=== PATIENT | female | born 1950 | race Caucasian/White ===

== ENCOUNTER 2020-08-21 08:22 | Outpatient (REF) | payer MEDICARE, SELFPAY | END 2020-08-21 08:23 | disposition home or self-care (01) | LOC: HO.WFDLDS 08:22 | PROVIDERS: Visit Provider Internal Medicine | DX: Z20.828 Contact with and (suspected) exposure to other viral communicable diseases (principal) | CPT/HCPCS: U0003 ==

== ENCOUNTER 2020-09-16 12:30 | Day surgery (SDC) | payer MEDICARE, SELFPAY ==
[2020-09-10 14:37] VITALS: BMI 52.4
--- NOTE | 2020-09-15 09:59 | HO.ANESPROP2 ---
Documented by User: Nancy Collazo 09/15/20 10:00 HPI - Anesthesia Eval Consult details Narrative: 70yo F for Colonoscopy PMFSH Past Medical History Medical History Depression GERD (gastroesophageal reflux disease) Hypercholesterolemia IBS (irritable bowel syndrome) Vitamin D deficiency Family History Family History Father Smoker Emphysema, unspecified Mother Colon cancer Maternal Grandfather No problems noted. Maternal Grandmother No problems noted. Paternal Grandfather No problems noted. Paternal Grandmother No problems noted. Sister No problems noted. Sister No problems noted. Sister No problems noted. Surgical History Surgical History H/O colonoscopy History of esophagogastroduodenoscopy (EGD) History of hysterectomy with bilateral oophorectomy Hx laparoscopic cholecystectomy Social History Social History Smoking Status: Former smoker Meds Allergies Allergy/AdvReac Type Severity Reaction Status Date / Time Penicillins [PENICILLINS] Allergy Intermediate HIVES Verified 08/03/20 14:03 Sulfa (Sulfonamide Allergy Intermediate FLUSHING/RASH, Verified 08/03/20 14:03 Antibiotics) hives [SULFA (SULFONAMIDE ANTIBIOTICS)] Home Medications Medication Instructions Recorded Confirmed Type cholecalciferol (vitamin D3) 50 50 mcg PO BEDTIME 08/06/20 09/10/20 History mcg (2,000 unit) capsule colesevelam 3.75 gram oral powder 3.75 g PO BID 08/06/20 09/10/20 History packet flu vacc [id number](65yr up)-PF 240 ml IM 08/06/20 08/06/20 History mcg/0.7 mL intramuscular syringe fluoxetine 10 mg capsule 10 mg PO DAILY 08/06/20 09/10/20 History meloxicam 15 mg tablet 15 mg PO DAILY 08/06/20 09/10/20 History triamcinolone acetonide 0.1 % 1 applic TOPICAL BID 08/06/20 09/10/20 History topical cream Exam Exam Date and Time: September 15, 2020 0959 Height,Weight and Vital Signs: Height 5 ft 5 in Weight 143 kg Assessment and Plan Assessment Anesthesia Assessment: Chart Reviewed Documented by User: Cindy Terrazas 09/16/20 11:48 PMF Past Medical History Medical History Depression GERD (gastroesophageal reflux disease) Hypercholesterolemia IBS (irritable bowel syndrome) Vitamin D deficiency Family History Family History Father Smoker Emphysema, unspecified Mother Colon cancer Maternal Grandfather No problems noted. Maternal Grandmother No problems noted. Paternal Grandfather No problems noted. Paternal Grandmother No problems noted. Sister No problems noted. Sister No problems noted. Sister No problems noted. Surgical History Surgical History H/O colonoscopy History of esophagogastroduodenoscopy (EGD) History of hysterectomy with bilateral oophorectomy Hx laparoscopic cholecystectomy Social History Social History Smoking Status: Former smoker Meds Allergies Allergy/AdvReac Type Severity Reaction Status Date / Time Penicillins [PENICILLINS] Allergy Intermediate HIVES Verified 08/03/20 14:03 Sulfa (Sulfonamide Allergy Intermediate FLUSHING/RASH, Verified 08/03/20 14:03 Antibiotics) hives [SULFA (SULFONAMIDE ANTIBIOTICS)] Home Medications Medication Instructions Recorded Confirmed Type cholecalciferol (vitamin D3) 50 50 mcg PO BEDTIME 08/06/20 09/10/20 History mcg (2,000 unit) capsule colesevelam 3.75 gram oral powder 3.75 g PO BID 08/06/20 09/10/20 History packet flu vacc [id number](65yr up)-PF 240 ml IM 08/06/20 08/06/20 History mcg/0.7 mL intramuscular syringe fluoxetine 10 mg capsule 10 mg PO DAILY 08/06/20 09/10/20 History meloxicam 15 mg tablet 15 mg PO DAILY 08/06/20 09/10/20 History triamcinolone acetonide 0.1 % 1 applic TOPICAL BID 08/06/20 09/10/20 History topical cream Exam Airway Mallampati Class: II TM Dist: >3cm Neck ROM: Full
[2020-09-15 13:56] VITALS: BMI 52.4
[2020-09-16 11:43] VITALS: BMI 23.3
[2020-09-16 12:02] VITALS: BP 186/91; PULSE 82; RESP 20; TEMP 36.4; O2SAT 99
--- NOTE | 2020-09-16 12:13 | MHC.SHP ---
Pre-Procedural Eval Section B Chief Complaint: Screening Relevant Social History: None Present Medications: see Short Stay Collaborative assessment Medical History: Significant History (Depression GERD (gastroesophageal reflux disease) Hypercholesterolemia IBS (irritable bowel syndrome) Vitamin D deficiency) History of Previous Operations: Relevant previous surgery/procedure and date(s) (hysterectomy, cholecystectomy) Allergies: Allergies Allergy/AdvReac Type Severity Reaction Status Date / Time Penicillins [PENICILLINS] Allergy Intermediate HIVES Verified 08/03/20 14:03 Sulfa (Sulfonamide Allergy Intermediate FLUSHING/RASH, Verified 08/03/20 14:03 Antibiotics) hives [SULFA (SULFONAMIDE ANTIBIOTICS)] Review of Systems Sugical H&P ROS: Negative: Constitution, Cardiovascular, Respiratory, Neurological, Psychiatric, Hem-Onc, Allergic/Immunologic, Gastrointestinal, Genitourinary, Musculoskeletal, Integumentary, Endocrine and Eyes/Ears/Nose/Throat Exam Surgical H&P Exam: Normal: HEENT, Normal: Heart, Normal: Lungs, Normal: Extremities, Normal: Abdomen, Normal: Skin and Normal: Neurological Plan Diagnosis/Plan: Unchanged Patient has been examined and remains a candidate for the planned procedure
--- NOTE | 2020-09-16 12:45 | P.BOP_ITS ---
Brief Operative Note Date of Service: 09/16/20 Pre-op diagnosis: colon screen Post-op diagnosis: same Procedure: Operative Information Procedure Description: Colonoscopy COLONOSCOPY Instrument: Olympus variable stiffness pediatric scope 190L Colonoscopy Monitoring: Vital signs and clinical assessment, continuous EKG monitoring, Pulse oximetry, Carbon Dioxide monitoring and blood pressure monitoring were done throughout the procedure. Colon withdrawal time was 6 minutes. Procedure: The patient was placed in the left lateral decubitis position and pre-procedure medications were administered. After a digital rectal examination of the ano-rectum, the video colonoscope was inserted into the rectum and advanced through the colon to the cecum/TI. The colonoscope was slowly withdrawn in a retrograde panoramic fashion and the colon mucosa was carefully examined including a retroflexed view of the rectum. Findings and interventions are described below. Procedure Difficulty: moderate due to tight colon and severe diverticulosis Findings: Terminal Ileum-normal Cecum:normal Ascending Colon: normal Transverse Colon -normal Descending Colon:normal Sigmoid Colon: numerous diverticula, varying sizes with mucosal hypertrophy Rectum: Retroflexion with small internal hemorrhoids, grade I Anorectum - normal Colon preparation: [place] Bowel Preparation Scale Right colon; 2 Transverse colon: 3 Left colon; 2 (0 = Unprepared colon segment with mucosa not seen due to solid stool that cannot be cleared. 1 = Portion of mucosa of the colon segment seen, but other areas of the colon segment not well seen due to staining, residual stool and/or opaque liquid. 2 = Minor amount of residual staining, small fragments of stool and/or opaque liquid, but mucosa of colon segment seen well. 3 = Entire mucosa of colon segment seen well with no residual staining, small fragments of stool or opaque liquid) Impression and Post Procedure Diagnosis: diverticulosis internal hemorrhoids Plan: High fiber diet leaflet Avoid straining at stool, epsom salts and sitz bath, anusol supps or cream Repeat Colonoscopy in 5 years or earlier if clinically indicated Above findings were reviewed with the patient and relevant handouts were provided if indicated. Surgeon: Dulce Maria Pappas MD Anesthesia: MAC Estimated blood loss (mL): 0 Pathology: none sent Condition: stable Disposition: PACU
[2020-09-16 12:54] VITALS: BP 127/74; PULSE 85; RESP 18; TEMP 36.3; O2SAT 98
[2020-09-16 12:59] VITALS: BP 142/86; PULSE 74; RESP 22; O2SAT 96
[2020-09-16 13:13] VITALS: BP 148/82; PULSE 68; RESP 20; TEMP 36.3; O2SAT 97
--- NOTE | 2020-09-16 13:47 | HO.POSTANES ---
Post Anesthesia Evaluation Post Anesthesia Evaluation Vital Signs: Vital Signs Temp Pulse Resp BP Pulse Ox 09/16/20 13:13 97.4 F 68 20 148/82 H 97 09/16/20 12:59 74 22 H 142/86 H 96 09/16/20 12:54 97.4 F 85 18 127/74 98 09/16/20 12:02 97.6 F 82 20 186/91 H 99 Anesthesia: Monitored Mental Status: Awake Pain Control: Satisfactory Nausea/Vomiting: None Hydration: Adequate Anesthesia-Related Issues: No Anes. Related Issues
== END 2020-09-16 23:59 | disposition home or self-care (01) ==
LOC: HO.SSS 09-17 14:31
PROVIDERS: PCP Internal Medicine; Visit Provider Internal Medicine Gastroenterology
PROC: 0DJD8ZZ Inspection of Lower Intestinal Tract, Via Natural or Artificial Opening Endoscopic (ICD-10-PCS; CPT 45378; principal; 2020-09-16 12:30)
DX: Z12.11 Encounter for screening for malignant neoplasm of colon (principal); K57.30 Diverticulosis of large intestine without perforation or abscess without bleeding; K64.0 First degree hemorrhoids; K58.9 Irritable bowel syndrome, unspecified; K63.89 Other specified diseases of intestine; K21.9 Gastro-esophageal reflux disease without esophagitis; F32.9 Major depressive disorder, single episode, unspecified; E78.00 Pure hypercholesterolemia, unspecified; E55.9 Vitamin D deficiency, unspecified; Z90.49 Acquired absence of other specified parts of digestive tract; Z88.0 Allergy status to penicillin; Z88.2 Allergy status to sulfonamides; Z87.891 Personal history of nicotine dependence; Z79.899 Other long term (current) drug therapy
CPT/HCPCS: G0121

== ENCOUNTER → 2020-10-20 14:26 | Outpatient (BNVA) | payer MEDICARE, SELFPAY | PROVIDERS: PCP Internal Medicine; Visit Provider Internal Medicine Gastroenterology | DX: Z98.890 Other specified postprocedural states (principal); K57.90 Diverticulosis of intestine, part unspecified, without perforation or abscess without bleeding; K64.8 Other hemorrhoids | CPT/HCPCS: Q3014 ==

== ENCOUNTER 2021-03-04 09:51 | Outpatient (REF) | payer MEDICARE, SELFPAY ==
[2021-03-04 11:14] LABS: Alanine Aminotransferase 26 U/L (0-31); Albumin Level 4.6 g/dL (3.5-5.0); Alkaline Phosphatase 58 U/L (39-117); Anion Gap 11 (12-20); Aspartate Amino Transferase 28 U/L (5-31); Bilirubin Total 1.6 mg/dL (0.0-1.0); Blood Urea Nitrogen 17 mg/dL (9-16); Calcium 9.5 mg/dL (8.4-10.2); Carbon Dioxide 28 mmol/L (22-29); Chloride 106 mmol/L (96-108); Cholesterol 174 mg/dL; Estimated Glomerular Filt Rate > 60; Glucose Fasting 99 mg/dL (60-99); HDL Cholesterol 67 mg/dL; LDL Cholesterol Calculated 93 mg/dl; Potassium 4.3 mmol/L (3.3-5.1); Sodium 141 mmol/L (135-145); Total Protein 6.4 g/dL (6.5-8.0); Triglycerides 74 mg/dL
[2021-03-04 11:37] LABS: Vitamin D 25-OH Total 33.5 ng/mL (>30)
== END 2021-03-04 09:52 | disposition home or self-care (01) ==
LOC: HO.LAB 09:51
PROVIDERS: PCP Internal Medicine; Visit Provider Internal Medicine
DX: Z00.00 Encounter for general adult medical examination without abnormal findings (principal); E55.9 Vitamin D deficiency, unspecified; E78.00 Pure hypercholesterolemia, unspecified
CPT/HCPCS: 36415; 80053; 80061; 82306

== ENCOUNTER 2021-08-12 09:19 | Outpatient (REF) | payer MEDICARE, SELFPAY ==
[2021-08-12 11:16] LABS: Appearance Urine HAZY; Color Urine YELLOW; Glucose Urine UA NEG (NEG); Leukocyte Esterase Urine 3+ (NEG); Nitrite Urine NEG (NEG); PH 5.5 (5.0-8.0); Specific Gravity - Urine >= 1.030 (1.005-1.025); Urine Blood 1+ (NEG); Urine Ketones NEG (NEG); Urine Protein NEG (NEG-TRACE)
[2021-08-12 11:22] LABS: Hematocrit 44.2 % (37.0-47.0); Hemoglobin 14.3 g/dl (12.0-16.0); Mean Corpuscular HGB Conc 32.4 g/dl (31.0-35.0); Mean Corpuscular Hemoglobin 30.8 pg (27.0-33.0); Mean Corpuscular Volume 95.3 fL (80.0-98.0); Mean Platelet Volume 9.1 fL (9.4-12.3); Platelet Count 272 X10*3/uL (160-400); Red Blood Count 4.64 X10*6/uL (4.20-5.50); Red Cell Distribution Width 12.9 % (11.0-16.0); White Blood Count 5.4 X10*3/uL (4.8-10.8)
[2021-08-12 11:36] LABS: Bacteria Urine TRACE /LPF; RBC Urine 0 /HPF (0); Squamous Epithelial Cell Urine TRACE /LPF
[2021-08-12 11:50] LABS: Alanine Aminotransferase 15 U/L (0-31); Albumin Level 4.4 g/dL (3.5-5.0); Alkaline Phosphatase 55 U/L (39-117); Anion Gap 8 (12-20); Aspartate Amino Transferase 18 U/L (5-31); Blood Urea Nitrogen 13 mg/dL (9-16); Calcium 9.2 mg/dL (8.4-10.2); Carbon Dioxide 28 mmol/L (22-29); Chloride 105 mmol/L (96-108); Cholesterol 180 mg/dL; Estimated Glomerular Filt Rate > 60; Glucose Fasting 104 mg/dL (60-99); HDL Cholesterol 65 mg/dL; LDL Cholesterol Calculated 98 mg/dl; Potassium 3.9 mmol/L (3.3-5.1); Sodium 137 mmol/L (135-145); Total Protein 6.3 g/dL (6.5-8.0); Triglycerides 88 mg/dL
== END 2021-08-12 09:20 | disposition home or self-care (01) ==
LOC: HO.WFDLDS 09:19
PROVIDERS: Visit Provider Internal Medicine
DX: E55.9 Vitamin D deficiency, unspecified (principal); E78.00 Pure hypercholesterolemia, unspecified; I10 Essential (primary) hypertension
CPT/HCPCS: 36415; 80053; 80061; 81001; 84443; 85027

== ENCOUNTER 2021-08-16 12:37 | Outpatient (REF) | payer MEDICARE, SELFPAY ==
[2021-08-16 14:08] LABS: Appearance Urine CLEAR; Color Urine YELLOW; Glucose Urine UA NEG (NEG); Leukocyte Esterase Urine NEG (NEG); Nitrite Urine NEG (NEG); Specific Gravity - Urine <= 1.005 (1.005-1.025); UACC Culture Trigger NO; Urine Blood TRACE (NEG); Urine Ketones NEG (NEG); Urine Protein NEG (NEG-TRACE)
[2021-08-16 14:28] LABS: Squamous Epithelial Cell Urine TRACE /LPF; WBC Urine 0 /HPF (0-4)
[2021-08-16 14:29] LABS: RBC Urine 0 /HPF (0)
== END 2021-08-16 12:38 | disposition home or self-care (01) ==
LOC: HO.HMGCLDS 12:37
PROVIDERS: PCP Internal Medicine; Visit Provider Internal Medicine
DX: R82.71 Bacteriuria (principal)
CPT/HCPCS: 81001; 81003

== ENCOUNTER 2021-08-24 11:41 | Outpatient (REF) | payer MEDICARE, SELFPAY ==
[2021-08-24 14:11] LABS: Appearance Urine CLEAR; Color Urine YELLOW; Glucose Urine UA NEG (NEG); Leukocyte Esterase Urine NEG (NEG); Nitrite Urine NEG (NEG); Specific Gravity - Urine 1.015 (1.005-1.025); Urine Blood TRACE (NEG); Urine Ketones NEG (NEG); Urine Protein NEG (NEG-TRACE)
[2021-08-24 15:01] LABS: RBC Urine 0 /HPF (0); WBC Urine 0-2 /HPF (0-4)
== END 2021-08-24 11:42 | disposition home or self-care (01) ==
LOC: HO.WFDLDS 11:41
PROVIDERS: Visit Provider Internal Medicine
DX: R82.71 Bacteriuria (principal)
CPT/HCPCS: 81001

== ENCOUNTER 2021-10-19 11:15 | Outpatient (REF) | payer MEDICARE, SELFPAY ==
[2021-10-19 11:37] LABS: Appearance Urine HAZY; Color Urine ORANGE; Leukocyte Esterase Urine 2+ (NEG); Nitrite Urine POS (NEG); Specific Gravity - Urine <= 1.005 (1.005-1.025); Urine Blood 3+ (NEG); Urine Ketones NEG (NEG); Urine Protein 2+ MG/DL (NEG-TRACE)
[2021-10-19 12:14] LABS: Bacteria Urine 2+ /LPF; Squamous Epithelial Cell Urine 1+ /LPF; Uric Acid Crystals Urine 1+ /LPF
== END 2021-10-19 11:16 | disposition home or self-care (01) ==
LOC: HO.LNP 11:15
PROVIDERS: Visit Provider Family Medicine
DX: N39.0 Urinary tract infection, site not specified (principal)
CPT/HCPCS: 81001; 81003; 87086; 87088; 87186

== ENCOUNTER 2021-11-01 13:38 | Outpatient (REF) | payer MEDICARE, SELFPAY ==
[2021-11-01 14:09] LABS: Appearance Urine HAZY; Color Urine YELLOW; Glucose Urine UA NEG (NEG); Leukocyte Esterase Urine TRACE (NEG); Nitrite Urine NEG (NEG); PH 5.5 (5.0-8.0); Specific Gravity - Urine >= 1.030 (1.005-1.025); Urine Blood TRACE (NEG); Urine Ketones NEG (NEG); Urine Protein NEG (NEG-TRACE)
[2021-11-01 14:22] LABS: Bacteria Urine 3+ /LPF; RBC Urine 0-2 /HPF (0); Squamous Epithelial Cell Urine TRACE /LPF
[2021-11-01 14:23] LABS: Calcium Oxalate Crystals Urine 1+ /LPF
== END 2021-11-01 13:39 | disposition home or self-care (01) ==
LOC: HO.LNP 13:38
PROVIDERS: Visit Provider Family Medicine
DX: N39.0 Urinary tract infection, site not specified (principal)
CPT/HCPCS: 81001; 81003; 87086; 87088; 87186

== ENCOUNTER 2021-12-27 14:01 | Outpatient (REF) | payer MEDICARE, SELFPAY ==
[2021-12-27 16:27] LABS: Hematocrit 44.8 % (37.0-47.0); Hemoglobin 14.8 g/dl (12.0-16.0); Mean Corpuscular Hemoglobin 31.2 pg (27.0-33.0); Mean Corpuscular Volume 94.5 fL (80.0-98.0); Mean Platelet Volume 9.1 fL (9.4-12.3); Platelet Count 296 X10*3/uL (160-400); Red Blood Count 4.74 X10*6/uL (4.20-5.50); Red Cell Distribution Width 12.8 % (11.0-16.0); White Blood Count 6.9 X10*3/uL (4.8-10.8)
[2021-12-27 16:29] LABS: Appearance Urine CLEAR; Color Urine STRAW; Glucose Urine UA NEG (NEG); Leukocyte Esterase Urine NEG (NEG); Nitrite Urine NEG (NEG); PH 5.5 (5.0-8.0); Specific Gravity - Urine 1.015 (1.005-1.025); Urine Blood 1+ (NEG); Urine Ketones NEG (NEG); Urine Protein NEG (NEG-TRACE)
[2021-12-27 16:34] LABS: Alanine Aminotransferase 25 U/L (0-31); Albumin Level 4.7 g/dL (3.5-5.0); Alkaline Phosphatase 62 U/L (39-117); Anion Gap 12 (12-20); Aspartate Amino Transferase 26 U/L (5-31); Bilirubin Total 1.1 mg/dL (0.0-1.0); Blood Urea Nitrogen 12 mg/dL (9-16); Calcium 9.7 mg/dL (8.4-10.2); Carbon Dioxide 26 mmol/L (22-29); Chloride 108 mmol/L (96-108); Estimated Glomerular Filt Rate > 60; Glucose Random 100 mg/dL (60-115); Potassium 3.9 mmol/L (3.3-5.1); Sodium 142 mmol/L (135-145)
[2021-12-27 16:41] LABS: Squamous Epithelial Cell Urine TRACE /LPF; WBC Urine 0 /HPF (0-4)
[2021-12-27 17:27] LABS: Erythrocyte Sedimentation Rate 2 MM/HR (0-20)
== END 2021-12-27 14:02 | disposition home or self-care (01) ==
LOC: HO.HMGCLDS 14:01
PROVIDERS: Visit Provider Internal Medicine
DX: R10.9 Unspecified abdominal pain (principal); N39.0 Urinary tract infection, site not specified
CPT/HCPCS: 36415; 80053; 81001; 85027; 85652; 87086

== ENCOUNTER 2022-01-07 10:58 | Outpatient (REF) | payer MEDICARE, SELFPAY ==
--- NOTE | ~2022-01-07 | CT_ITS ---
EXAMINATION: CT abdomen pelvis w con CLINICAL INFORMATION: Reason for Exam R10.9 - Unspecified abdominal pain COMPARISON: No prior CT available for comparison. TECHNIQUE: Multidetector volumetric imaging was performed from the superior aspect of the liver through the pubic symphysis 85 mL Omnipaque 350 injected Sagittal and coronal reformatted images were obtained on the technologist's workstation. This CT examination was performed using dose optimization techniques as appropriate, variously including the following: *Automated exposure control *Adjustment of mA and/or kV according to patient size (this includes techniques or standardized protocols for targeted exams where dose is matched to indication/reason for exam; i.e. extremities or head) *Use of iterative reconstruction technique DLP: 315 mGy-cm FINDINGS: LOWER THORAX: Lung bases are clear. HEPATOBILIARY: Ill-defined hypodense lesion in the posterior segment right lobe of the liver segment 7 measures 3.7 x 3.9 cm, ill-defined hypodense lesion in the liver near the dome 1.2 cm, hypodense lesion in the right lobe of the liver segment 7 measures 1.2 x 1.8 cm, the ill-defined margins are concerning for neoplasm primary or metastatic. This may require further characterization with contrast-enhanced MRI. There is fullness at the the gastroesophageal junction although nonspecific, commonly found to be nondistended sliding hiatal hernia, this can be further evaluated with barium esophagogram if clinically indicated. GALLBLADDER: Gallbladder has been removed. SPLEEN: Spleen is normal in size. PANCREAS: No focal mass or ductal dilatation. STOMACH AND GASTROINTESTINAL TRACT: Stomach is grossly unremarkable. There is no bowel distention or thickening. No CT evidence of appendicitis. ADRENALS: No adrenal nodules. KIDNEYS/URETERS: 1 cm simple cyst middle pole left kidney. No kidney stone or hydronephrosis. URINARY BLADDER: Partially decompressed. PELVIC VISCERA: Unremarkable PERITONEUM: No free air or fluid. LYMPH NODES: No lymphadenopathy. VASCULAR:Abdominal aorta normal in size, no aneurysm found. BONES, ABDOMINAL WALL AND SOFT TISSUES: Age-appropriate changes of the spine and skeletal system, no destructive osteolytic or osteosclerotic bone lesion found CT/CT abdomen pelvis w con IMPRESSION: *No CT evidence of diverticulitis. * There are 2 LIVER LESIONS, the largest posterior segment right lobe of the liver segment 7 measure up to 3.9 cm, Huitron images, heterogeneous matrix and ill-defined borders, this would require further investigation with dynamically enhanced liver protocol MRI. *Status post cholecystectomy, mild fullness of the CBD probably physiologic. *Simple left renal cyst *There is fullness at the the gastroesophageal junction although nonspecific, commonly found to be nondistended sliding hiatal hernia, this can be further evaluated with barium esophagogram if clinically indicated. (Referring physician staff is being called, to be alerted of the above findings and recommendations.) JR
[2022-01-07] MEDS: iohexoL 350 MG/ML 100 ML INFUS..BTL 85 ML IV (13:32)
[2022-01-07] MEDS: Barium Sulfate Oral (Berry) 450 ML ORAL.SUSP 900 ML PO (13:35)
== END 2022-01-07 10:59 | disposition home or self-care (01) ==
LOC: HO.CT 10:58
PROVIDERS: Visit Provider Internal Medicine
DX: R10.9 Unspecified abdominal pain (principal); K57.92 Diverticulitis of intestine, part unspecified, without perforation or abscess without bleeding
CPT/HCPCS: 74177; Q9967

== ENCOUNTER 2022-01-13 08:34 | Outpatient (REF) | payer MEDICARE, SELFPAY ==
[2022-01-13 10:47] LABS: Alanine Aminotransferase 22 U/L (0-31); Albumin Level 4.3 g/dL (3.5-5.0); Alkaline Phosphatase 55 U/L (39-117); Anion Gap 14 (12-20); Aspartate Amino Transferase 27 U/L (5-31); Bilirubin Total 1.8 mg/dL (0.0-1.0); Blood Urea Nitrogen 14 mg/dL (9-16); Carbon Dioxide 23 mmol/L (22-29); Chloride 109 mmol/L (96-108); Estimated Glomerular Filt Rate > 60; Glucose Random 106 mg/dL (60-115); Potassium 3.9 mmol/L (3.3-5.1); Sodium 142 mmol/L (135-145); Total Protein 6.5 g/dL (6.5-8.0)
== END 2022-01-13 08:35 | disposition home or self-care (01) ==
LOC: HO.WFDLDS 08:34
PROVIDERS: Visit Provider Internal Medicine
DX: I10 Essential (primary) hypertension (principal)
CPT/HCPCS: 36415; 80053

== ENCOUNTER 2022-01-13 13:32 | Outpatient (REF) | payer MEDICARE, SELFPAY ==
--- NOTE | ~2022-01-13 | MR_ITS ---
EXAMINATION: MR ABDOMEN WITHOUT AND WITH CONTRAST CLINICAL INFORMATION: Hepatomegaly. 2 liver lesions. COMPARISON: Previous CT of the abdomen and pelvis December 2021 TECHNIQUE: MR abdomen was performed without and with use of 6 mL intravenous Gadavist gadolinium contrast. Postcontrast images are performed in multiphase dynamic sequences. Imaging was performed in 3 planes. FINDINGS: LUNG BASES: There are dilated nerve root sleeves or perineural cysts seen in the lower thoracic spine. The lung bases are otherwise unremarkable. LIVER, GALLBLADDER, AND BILIARY TREE: The liver is normal in size, smooth in contour, and normal in signal. There are 2 lesions in the right lobe of the liver measuring 3.7 cm and 2.2 x 1.8 cm. These are low signal on T1-weighted sequences, high signal on T2-weighted sequences and a straight delayed puddling peripheral enhancement. Signal characteristics are suggestive of benign hemangiomas. There is a third lesion in the inferior medial segment of the left lobe of the liver. This is low signal on T1-weighted sequences, high signal on T2-weighted sequences and demonstrates no evidence compatible with a cyst. PANCREAS: Unremarkable. SPLEEN: Normal. ADRENAL GLANDS: Normal. KIDNEYS AND URETERS: The kidneys are normal in size, shape, and enhance symmetrically. There is a 1 cm cyst in the upper pole of the left kidney. No hydronephrosis. No perinephric stranding. GASTROINTESTINAL TRACT: No bowel obstruction. No ascites or fluid collection. ABDOMINAL WALL: No significant hernia is appreciated. LYMPH NODES: No lymphadenopathy. VASCULAR: Unremarkable. OSSEOUS STRUCTURES: Marrow signal normal. MR/MR abdomen wo/w con IMPRESSION: 2 liver lesions in the right lobe identified by CT scan correspond to benign hemangiomas, largest measuring 3.7 cm. There is a third 1 cm cyst in the left lobe of the liver. Small left renal cyst. Probable small perineural cysts or dilated nerve root sleeves seen in the lower thoracic spine.
== END 2022-01-13 13:33 | disposition home or self-care (01) ==
LOC: HO.MRI 13:32
PROVIDERS: PCP Internal Medicine; Visit Provider Internal Medicine
DX: R16.0 Hepatomegaly, not elsewhere classified (principal)
CPT/HCPCS: 74183; A9585

== ENCOUNTER → 2022-02-18 08:41 | Outpatient (BNVA) | payer MEDICARE, SELFPAY | PROVIDERS: PCP Internal Medicine; Referring Provider Internal Medicine; Visit Provider Internal Medicine Gastroenterology | DX: K59.4 Anal spasm (principal) | CPT/HCPCS: Q3014 ==

== ENCOUNTER 2022-08-26 09:11 | Outpatient (REF) | payer MEDICARE, SELFPAY ==
[2022-08-26 09:40] LABS: Hematocrit 43.4 % (37.0-47.0); Hemoglobin 14.1 g/dl (12.0-16.0); Mean Corpuscular HGB Conc 32.5 g/dl (31.0-35.0); Mean Corpuscular Hemoglobin 30.5 pg (27.0-33.0); Mean Corpuscular Volume 93.9 fL (80.0-98.0); Mean Platelet Volume 8.5 fL (9.4-12.3); Platelet Count 388 X10*3/uL (160-400); Red Blood Count 4.62 X10*6/uL (4.20-5.50); White Blood Count 5.3 X10*3/uL (4.8-10.8)
[2022-08-26 10:36] LABS: Alanine Aminotransferase 28 U/L (0-31); Albumin Level 4.4 g/dL (3.5-5.0); Alkaline Phosphatase 71 U/L (39-117); Anion Gap 16 (12-20); Aspartate Amino Transferase 32 U/L (5-31); Bilirubin Total 1.1 mg/dL (0.0-1.0); Blood Urea Nitrogen 16 mg/dL (9-16); Calcium 9.4 mg/dL (8.4-10.2); Carbon Dioxide 26 mmol/L (22-29); Chloride 104 mmol/L (96-108); Cholesterol 211 mg/dL; Estimated Glomerular Filt Rate > 60; Glucose Fasting 94 mg/dL (60-99); HDL Cholesterol 65 mg/dL; LDL Cholesterol Calculated 128 mg/dl; Potassium 4.6 mmol/L (3.3-5.1); Sodium 141 mmol/L (135-145); Total Protein 6.5 g/dL (6.5-8.0); Triglycerides 90 mg/dL
[2022-08-26 10:55] LABS: Vitamin D 25-OH Total 34.6 ng/mL (>30)
== END 2022-08-26 09:12 | disposition home or self-care (01) ==
LOC: HO.LAB 09:11
PROVIDERS: PCP Internal Medicine; Visit Provider Internal Medicine
DX: E55.9 Vitamin D deficiency, unspecified (principal); E78.00 Pure hypercholesterolemia, unspecified; I10 Essential (primary) hypertension
CPT/HCPCS: 36415; 80053; 80061; 82306; 85027

== ENCOUNTER → 2022-09-19 09:01 | Outpatient (BNVA) | payer MEDICARE, SELFPAY | PROVIDERS: PCP Internal Medicine; Referring Provider Internal Medicine; Visit Provider Internal Medicine Gastroenterology | DX: K21.00 Gastro-esophageal reflux disease with esophagitis, without bleeding (principal) | CPT/HCPCS: 99212 ==

== ENCOUNTER → 2023-01-02 09:30 | Outpatient (BNVA) | payer MEDICARE, SELFPAY | PROVIDERS: PCP Internal Medicine; Visit Provider Internal Medicine Gastroenterology | DX: K21.00 Gastro-esophageal reflux disease with esophagitis, without bleeding (principal) | CPT/HCPCS: 99212 ==

== ENCOUNTER 2023-03-09 08:54 | Outpatient (REF) | payer MEDICARE, SELFPAY ==
[2023-03-09 12:08] LABS: Alanine Aminotransferase 19 U/L (0-31); Albumin Level 4.2 g/dL (3.5-5.0); Alkaline Phosphatase 63 U/L (39-117); Anion Gap 12 (12-20); Aspartate Amino Transferase 24 U/L (5-31); Bilirubin Total 1.1 mg/dL (0.0-1.0); Blood Urea Nitrogen 14 mg/dL (9-16); Calcium 9.4 mg/dL (8.4-10.2); Carbon Dioxide 24 mmol/L (22-29); Chloride 109 mmol/L (96-108); Cholesterol 195 mg/dL; Estimated Glomerular Filt Rate > 60; Glucose Fasting 98 mg/dL (60-99); HDL Cholesterol 66 mg/dL; LDL Cholesterol Calculated 113 mg/dl; Potassium 4.3 mmol/L (3.3-5.1); Sodium 141 mmol/L (135-145); Total Protein 6.3 g/dL (6.5-8.0); Triglycerides 83 mg/dL
== END 2023-03-09 08:55 | disposition home or self-care (01) ==
LOC: HO.WFDLDS 08:54
PROVIDERS: Visit Provider Internal Medicine
DX: E78.00 Pure hypercholesterolemia, unspecified (principal); I10 Essential (primary) hypertension
CPT/HCPCS: 36415; 80053; 80061

== ENCOUNTER 2023-03-14 11:28 | Outpatient (REF) | payer BC, SELFPAY ==
--- NOTE | ~2023-03-14 | XR_ITS ---
EXAMINATION: XR KNEE AP STANDING AND LATERAL CLINICAL INFORMATION: Bilateral knee pain COMPARISON: Right knee x-rays 02/05/2014 TECHNIQUE: AP and lateral standing views of each knee were obtained. FINDINGS: Right knee: No fracture or dislocation. No suprapatellar joint effusion. Mild narrowing of the medial joint space height and patellofemoral joint space. Small tricompartmental marginal osteophytes predominantly involving the patellofemoral joint. No focal soft tissue swelling of the anterior knee. Left knee: No fracture or dislocation. No suprapatellar joint effusion. Minimal narrowing of the medial joint space height and patellofemoral joint space. Small tricompartmental marginal osteophytes. No focal soft tissue swelling the anterior knee. XR/XR knee standing BI IMPRESSION: Mild degenerative changes of both knees, slightly more prominent on the right.
== END 2023-03-14 11:29 | disposition home or self-care (01) ==
LOC: HO.HMGCX 11:28
PROVIDERS: PCP Internal Medicine; Visit Provider Internal Medicine
DX: M25.561 Pain in right knee (principal); M25.562 Pain in left knee
CPT/HCPCS: 73565

== ENCOUNTER 2023-05-04 08:00 | Outpatient (RCR) | payer MEDICARE, SELFPAY ==
--- NOTE | 2023-04-14 12:26 | MHC.PT.EP ---
[facility] [place] [facility] [place] [facility] [place] Office [address] Kathy Ramirez [address] [phone] F: [phone] F: [phone] F: [phone] F: [phone] Physical Therapy Plan of Care Date of Evaluation: Date of Surgery: Diagnosis: Pt referred to PT from Dr. Colón for R knee pain date of referral Assessment: Pt is a pleasant, 72 y/o active female who enjoys hiking, golf, and walking, was referred to PT from her PCP Dr. Colón for treatment of Pain in R knee M25.561 following onset of sx which have been present for several months. Pt exhibits decreased strength/flexibility of the R quadriceps, impaired eccentric control, and decreased tolerance for functional mobility. She exhibits weakness of hip abd and hip extensors. Pt would benefit from attending skilled PT services to address impairments, implement HEP, and restore functional mobility to resume PLOF. Pt was intiated in quadriceps stretching prone with strap, isometric QS, SAQ, and SLR for HEP. Pt was encouraged to ice her knee to reduce pain/inflammation. Pt will benefit from trial of knee taping to reduce anterior knee pain as well to improve tolerance for hiking, walking. Pt denies pain at night and denies difficulty sleeping. Pt to be seen in PT 1-2x/week (pt expressing will come in once next week and then will be out of town for some time). Frequency and Duration: The patient will be seen 1-2x/week Short Term Goals: 1. Improve strength of quadriceps by one grade. 2. Reduce knee pain on the R>L by 25%. 3. Improve quadriceps flexibility by 25%. 4. Negotiate an 8 inch step with good eccentric control. Senior Care Goals: 1. Community ambulation no evidence of instability/buckling of the R knee. 2. I HEP/self care management. 3. Strength quadriceps 5/5. 4. Hike/walk/ 2 miles without sx >3/10 R knee. Treatment Plan: Modalities to reduce pain, spasms and effusion. Manual therapy to restore motion and function. Therapeutic exercise to improve strength and flexibility. Neuromuscular re-education for posture and balance. Therapeutic activities to return to functional activities of daily living. Electronically signed by: Crystal Shin PT, DPT Please sign and return to therapist. Thank you for your referral.
== END 2023-09-19 10:55 | disposition home or self-care (01) ==
LOC: HO.PTWFD 08:00
PROVIDERS: PCP Internal Medicine; Visit Provider Internal Medicine
DX: M25.561 Pain in right knee (principal)
CPT/HCPCS: 97110; 97140; 97150; 97161; 97535

== ENCOUNTER 2023-07-04 13:57 | Outpatient (AMB) | payer MEDICARE, SELFPAY ==
--- NOTE | 2023-07-04 14:13 | A.OFFPC_ITS ---
Vital Signs 07/04/23 14:14 Height 5 ft 5 in Weight 138 lb BMI 23.0 BP 120/74 Blood Pressure Location Lt brachial Position Sitting Pulse 90 Pulse Source Pulse Oximeter Pulse Oximetry (%) 99 Oxygen Delivery Method Room Air Intake Visit Reasons: Pre op cataract surgery on 07/17/23 Dr. Brandt Allergies Penicillins [PENICILLINS] Allergy (Intermediate, Verified 07/04/23 14:18) HIVES Sulfa (Sulfonamide Antibiotics) [SULFA (SULFONAMIDE ANTIBIOTICS)] Allergy (Intermediate, Verified 07/04/23 14:18) FLUSHING/RASH, hives Cephalosporins Allergy (Unknown, Verified 07/04/23 14:18) Unknown Medication List - Last Reconciled 07/04/23 by Naa Colón MD atorvastatin 20 mg PO DAILY cholecalciferol (vitamin D3) 50 mcg PO BEDTIME colesevelam 3.75 grams PO BID fluoxetine 10 mg PO DAILY losartan 25 mg PO DAILY nortriptyline 10 mg PO BEDTIME pantoprazole 40 mg PO DAILY Tobacco use date assessed: 07/04/23 Fall risk assessment: No Falls in past year Last assessed Fall Risk: 07/04/23 Dental Screening Dental Screen Date: 07/04/23 Did you have a dental visit in the last 12 months?: Yes Did you have a dental problem in the last 6 months where you did not have access to dental care?: No Was dental information given to patient?: Patient has dentist HPI Pre op cataract surgery on 07/17/23 Dr. Brandt HPI Details Pt presents for preop for cataract surgery. HTN and hyperlipid are stable on meds. [facility] Medical History Liver masses Diverticulitis Abdominal pain Bacteriuria HTN (hypertension) Abnormal mammogram of right breast Vitamin D deficiency IBS (irritable bowel syndrome) Depression GERD (gastroesophageal reflux disease) Hypercholesterolemia Surgical History History of esophagogastroduodenoscopy (EGD) H/O colonoscopy History of hysterectomy with bilateral oophorectomy Hx laparoscopic cholecystectomy Family History Father Smoker Emphysema, unspecified Mother Colon cancer Maternal Grandfather No problems noted. Maternal Grandmother No problems noted. Paternal Grandfather No problems noted. Paternal Grandmother No problems noted. Sister Mental health disorder Sister Mental health disorder Sister Mental health disorder Social History Household Members: Spouse Housing: House Alcohol intake: current Alcohol intake frequency: a few times a week Patient Tobacco Use Status: Never used Tobacco e-Cigarette/Vaping Use: Never Used Current occupational status: retired Cognitive needs: No Hearing needs: No Vision needs: Yes Questionnaire Thrive Questionnaire Date Thrive assessed: 03/14/23 SAMARA-7 AMB Questionnaire SAMARA-7 Date SAMARA - 7 assessed: 03/14/23 Source: Developed by Drs. Malcom Urrutia, Michelle Harrington, Johnathan Casiano and colleagues, with an educational carmen from [employer]. Review of Systems Const All systems reviewed & are unremarkable except as noted in HPI and below Reports no additional complaints Eyes Reports no additional complaints ENT Reports no additional complaints Card Reports no additional complaints Resp Reports no additional complaints GI Reports no additional complaints Reports no additional complaints Physical exam (Primary Care) Vital Signs: Last Vital Signs Pulse 90 07/04/23 14:14 BP 120/74 07/04/23 14:14 Pulse Ox 99 07/04/23 14:14 Oxygen Delivery Method Room Air 07/04/23 14:14 BMI result Body Mass Index 23.0 Tobacco/Smoking Status: Tobacco use Status Tobacco use date assessed 07/04/23 07/04/23 14:23 Patient Tobacco Use Status Never used Tobacco 07/04/23 14:23 e-Cigarette/Vaping Use Never Used 07/04/23 14:15 Thrive Assessment: Date of Thrive Assessment Date Thrive assessed 03/14/23 07/04/23 14:15 Const General: no acute distress HENMT Head: Yes normal to inspection Neck Neck: Yes no lymphadenopathy and Yes supple Resp Effort & Inspection: normal respiratory effort Auscultation: clear to auscultation bilaterally Cardio Rhythm: regular rhythm Heart sounds: S1 normal heart sound present and S2 normal heart sound present GI Inspection: Yes normal to inspection Palpation (GI): Soft to palpation Percussion: Yes normal to percussion Assessment and Plan Assessment & Plan (1) HTN (hypertension): Code(s): I10 - Essential (primary) hypertension Plan: cont Losartan (2) Cataract: Code(s): H26.9 - Unspecified cataract Plan: EKG showed NSR, no ST-T changes. Pt is cleared for cataract surgery Orders: Orders Complete Blood Count Auto Diff Today H26.9 - Unspecified cataract, I10 - Essential (primary) hypertension Comprehensive Met. Panel Today H26.9 - Unspecified cataract, I10 - Essential (primary) hypertension Coding Level of Care Code Est Pt Level 3 (49632) Diagnoses HTN (hypertension) I10 Cataract H26.9
[2023-07-04 14:14] VITALS: BP 120/74; PULSE 90; O2SAT 99; BMI 23.0
== END 2023-07-04 14:37 | disposition home or self-care (01) ==
PROVIDERS: PCP Internal Medicine; Visit Provider Internal Medicine
DX: I10 Essential (primary) hypertension (principal); H26.9 Unspecified cataract
CPT/HCPCS: 99213

== ENCOUNTER 2023-07-04 14:34 | Outpatient (REF) | payer MEDICARE, SELFPAY ==
[2023-07-04 15:58] LABS: MANUAL DIFF FLAG NO
[2023-07-04 16:13] LABS: Basophils Absolute Auto 0.1 X10*3/uL (0.0-0.2); Basophils Percent Auto 0.7 % (0-2); Eosinophils Absolute Auto 0.1 X10*3/uL (0.0-0.4); Hematocrit 43.8 % (37.0-47.0); Hemoglobin 14.3 g/dl (12.0-16.0); Imm Gran Abs Auto 0.03 X10*3/uL (0.00-0.03); Imm Gran Pct Auto 0.4 % (0.0-0.4); Lymphocytes Absolute Auto 1.5 X10*3/uL (1.2-4.9); Lymphocytes Percent Auto 19.9 % (20-40); Mean Corpuscular HGB Conc 32.6 g/dl (31.0-35.0); Mean Corpuscular Hemoglobin 30.7 pg (27.0-33.0); Monocytes Absolute Auto 0.5 X10*3/uL (0.1-1.2); Monocytes Percent Auto 7.1 % (2-11); Neutrophils Absolute Auto 5.4 x10*3/uL (2.0-8.3); Neutrophils Percent Auto 70.9 % (45-73); Platelet Count 282 X10*3/uL (160-400); Red Blood Count 4.66 X10*6/uL (4.20-5.50); Red Cell Distribution Width 13.2 % (11.0-16.0); White Blood Count 7.6 X10*3/uL (4.8-10.8)
[2023-07-04 16:23] LABS: Alanine Aminotransferase 21 U/L (0-31); Albumin Level 4.5 g/dL (3.5-5.0); Alkaline Phosphatase 66 U/L (39-117); Anion Gap 11 (12-20); Aspartate Amino Transferase 26 U/L (5-31); Bilirubin Total 1.1 mg/dL (0.0-1.0); Blood Urea Nitrogen 14 mg/dL (9-16); Calcium 9.8 mg/dL (8.4-10.2); Carbon Dioxide 27 mmol/L (22-29); Chloride 108 mmol/L (96-108); Estimated Glomerular Filt Rate > 60; Glucose Random 92 mg/dL (60-115); Potassium 3.2 mmol/L (3.3-5.1); Sodium 143 mmol/L (135-145); Total Protein 6.8 g/dL (6.5-8.0)
== END 2023-07-04 14:35 | disposition home or self-care (01) ==
LOC: HO.HMGCLDS 14:34
PROVIDERS: PCP Internal Medicine; Visit Provider Internal Medicine
DX: I10 Essential (primary) hypertension (principal); H26.9 Unspecified cataract
CPT/HCPCS: 36415; 80053; 85025

== ENCOUNTER 2023-07-13 10:47 | Outpatient (REF) | payer MEDICARE, SELFPAY ==
[2023-07-13 15:08] LABS: Anion Gap 14 (12-20); Blood Urea Nitrogen 13 mg/dL (9-16); Calcium 10.2 mg/dL (8.4-10.2); Carbon Dioxide 26 mmol/L (22-29); Chloride 105 mmol/L (96-108); Estimated Glomerular Filt Rate > 60; Glucose Random 90 mg/dL (60-115); Potassium 4.1 mmol/L (3.3-5.1); Sodium 141 mmol/L (135-145)
== END 2023-07-13 10:48 | disposition home or self-care (01) ==
LOC: HO.WFDLDS 10:47
PROVIDERS: Visit Provider Internal Medicine
DX: E87.6 Hypokalemia (principal)
CPT/HCPCS: 36415; 80048

== ENCOUNTER 2023-09-15 11:23 | Outpatient (AMB) | payer BC, SELFPAY ==
[2023-09-15 11:45] VITALS: BP 120/78; PULSE 80; O2SAT 96; BMI 23.6
--- NOTE | 2023-09-15 11:45 | A.OFFPC_ITS ---
Vital Signs 09/15/23 11:45 Height 5 ft 5 in Weight 142 lb BMI 23.6 BP 120/78 Blood Pressure Location Lt brachial Position Sitting Pulse 80 Pulse Source Pulse Oximeter Pulse Oximetry (%) 96 Oxygen Delivery Method Room Air Intake Visit Reasons: PE Intake Note: Pt is here today for PE. Allergies Penicillins [PENICILLINS] Allergy (Intermediate, Verified 09/15/23 11:48) HIVES Sulfa (Sulfonamide Antibiotics) [SULFA (SULFONAMIDE ANTIBIOTICS)] Allergy (Intermediate, Verified 09/15/23 11:48) FLUSHING/RASH, hives Cephalosporins Allergy (Unknown, Verified 09/15/23 11:48) Unknown Medication List - Last Reconciled 09/15/23 by Naa Colón MD atorvastatin 20 mg PO DAILY cholecalciferol (vitamin D3) 50 mcg PO BEDTIME colesevelam 3.75 grams PO BID fluoxetine 10 mg PO DAILY losartan 25 mg PO DAILY nortriptyline 10 mg PO BEDTIME pantoprazole 40 mg PO DAILY Tobacco use date assessed: 09/15/23 HPI PE HPI Details Pt presents for PE. PFSH Medical History Liver masses Diverticulitis Abdominal pain Bacteriuria HTN (hypertension) Abnormal mammogram of right breast Vitamin D deficiency IBS (irritable bowel syndrome) Depression GERD (gastroesophageal reflux disease) Hypercholesterolemia Surgical History History of esophagogastroduodenoscopy (EGD) H/O colonoscopy History of hysterectomy with bilateral oophorectomy Hx laparoscopic cholecystectomy Family History Father Smoker Emphysema, unspecified Mother Colon cancer Maternal Grandfather No problems noted. Maternal Grandmother No problems noted. Paternal Grandfather No problems noted. Paternal Grandmother No problems noted. Sister Mental health disorder Sister Mental health disorder Sister Mental health disorder Social History Household Members: Spouse Housing: House Alcohol intake: current Alcohol intake frequency: a few times a week Patient Tobacco Use Status: Never used Tobacco e-Cigarette/Vaping Use: Never Used Current occupational status: retired Cognitive needs: No Hearing needs: No Vision needs: Yes Questionnaire Thrive Questionnaire Date Thrive assessed: 03/14/23 SAMARA-7 AMB Questionnaire SAMARA-7 Date SAMARA - 7 assessed: 03/14/23 Source: Developed by Drs. Malcom Urrutia, Michelle Harrington, Johnathan Casiano and colleagues, with an educational carmen from [employer]. Review of Systems Const All systems reviewed & are unremarkable except as noted in HPI and below Reports no additional complaints Eyes Reports no additional complaints ENT Reports no additional complaints Card Reports no additional complaints Resp Reports no additional complaints GI Reports no additional complaints Physical exam (Primary Care) Vital Signs: Last Vital Signs Pulse 80 09/15/23 11:45 BP 120/78 09/15/23 11:45 Pulse Ox 96 09/15/23 11:45 Oxygen Delivery Method Room Air 09/15/23 11:45 BMI result Body Mass Index 23.6 Tobacco/Smoking Status: Tobacco use Status Tobacco use date assessed 09/15/23 09/15/23 11:54 Patient Tobacco Use Status Never used Tobacco 09/15/23 11:47 e-Cigarette/Vaping Use Never Used 09/15/23 11:47 Thrive Assessment: Date of Thrive Assessment Date Thrive assessed 03/14/23 09/15/23 11:47 Const General: no acute distress HENMT Head: Yes normal to inspection Ears: hearing grossly normal bilaterally Mouth: Normal oral and palatal mucosa present Eyes General: appearance normal, both eyes and all related structures Neck Neck: Yes no lymphadenopathy and Yes supple Resp Effort & Inspection: normal respiratory effort Auscultation: clear to auscultation bilaterally Cardio Rhythm: regular rhythm Heart sounds: S1 normal heart sound present and S2 normal heart sound present GI Inspection: Yes normal to inspection Palpation (GI): Soft to palpation Percussion: Yes normal to percussion Auscultation: normal bowel sounds Assessment and Plan Assessment & Plan (1) Postmenopausal: Code(s): Z78.0 - Asymptomatic menopausal state Plan: pt will schedule DEXA at [facility] (2) Annual physical exam: Code(s): Z00.00 - Encounter for general adult medical examination without abnormal findings Plan: Well-balanced diet and regular physical activity discussed with the patient. She is up-to-date with mammogram and colonoscopy (3) Hypercholesterolemia: Code(s): E78.00 - Pure hypercholesterolemia, unspecified Plan: Continue statin (4) HTN (hypertension): Code(s): I10 - Essential (primary) hypertension Plan: Continue losartan (5) Vitamin D deficiency: Code(s): E55.9 - Vitamin D deficiency, unspecified Orders: Orders Comprehensive [place]. Panel Fast 6 Months E55.9 - Vitamin D deficiency, unspecified, E78.00 - Pure hypercholesterolemia, unspecified, I10 - Essential (primary) hypertension, Z00.00 - Encounter for general adult medical examination without abnormal findings, Z78.0 - Asymptomatic menopausal state XR DEXA axial skeleton 6 Months E55.9 - Vitamin D deficiency, unspecified, E 78.00 - Pure hypercholesterolemia, unspecified, I10 - Essential (primary) hypertension, Z00.00 - Encounter for general adult medical examination without abnormal findings, Z78.0 - Asymptomatic menopausal state Lipid Panel 6 Months E55.9 - Vitamin D deficiency, unspecified, E78.00 - Pure hypercholesterolemia, unspecified, I10 - Essential (primary) hypertension, Z00.00 - Encounter for general adult medical examination without abnormal findings, Z78.0 - Asymptomatic menopausal state Complete Blood Count Auto Diff 6 Months E55.9 - Vitamin D deficiency, unspecified, E78.00 - Pure hypercholesterolemia, unspecified, I10 - Essential (primary) hypertension, Z00.00 - Encounter for general adult medical examination without abnormal findings, Z78.0 - Asymptomatic menopausal state TSH reflex Free T4 6 Months E55.9 - Vitamin D deficiency, unspecified, E78.00 - Pure hypercholesterolemia, unspecified, I10 - Essential (primary) hypertension, Z00.00 - Encounter for general adult medical examination without abnormal findings, Z78.0 - Asymptomatic menopausal state Vitamin D 25-OH Total 6 Months E55.9 - Vitamin D deficiency, unspecified, E78.00 - Pure hypercholesterolemia, unspecified, I10 - Essential (primary) hypertension, Z00.00 - Encounter for general adult medical examination without abnormal findings, Z78.0 - Asymptomatic menopausal state Medications: Refilled atorvastatin 20 mg PO DAILY 90 tabs 3RF losartan 25 mg PO DAILY 90 tabs 3RF nortriptyline 10 mg PO BEDTIME 90 caps 3RF fluoxetine 10 mg PO DAILY 90 caps 3RF pantoprazole 40 mg PO DAILY 90 tabs 3RF Coding Level of Care Code Est Pt Prev Care >65y(21008) Diagnoses Postmenopausal Z78.0 Annual physical exam Z00.00 Hypercholesterolemia E78.00 HTN (hypertension) I10 Vitamin D deficiency E55.9
== END 2023-09-15 12:54 | disposition home or self-care (01) ==
PROVIDERS: PCP Internal Medicine; Visit Provider Internal Medicine
DX: Z78.0 Asymptomatic menopausal state (principal); Z00.00 Encounter for general adult medical examination without abnormal findings; E78.00 Pure hypercholesterolemia, unspecified; I10 Essential (primary) hypertension; E55.9 Vitamin D deficiency, unspecified
CPT/HCPCS: 99397

== ENCOUNTER 2024-05-01 09:55 | Outpatient (AMB) | payer MEDICARE, SELFPAY ==
[2024-05-01 10:04] VITALS: BP 126/82; PULSE 77; O2SAT 97; BMI 23.1
--- NOTE | 2024-05-01 10:04 | MHC.PC.OV ---
Vital Signs 05/01/24 10:04 Height 5 ft 5 in Weight 139 lb BMI 23.1 BP 126/82 Blood Pressure Location Lt brachial Position Sitting Pulse 77 Pulse Source Pulse Oximeter Pulse Oximetry (%) 97 Oxygen Delivery Method Room Air Intake Visit Reasons: 6mth follow up HTN 03/20 Intake Note: Pt is here today for 6 months follow up visit. Allergies Penicillins [PENICILLINS] Allergy (Intermediate, Verified 05/01/24 10:04) HIVES Sulfa (Sulfonamide Antibiotics) [SULFA (SULFONAMIDE ANTIBIOTICS)] Allergy (Intermediate, Verified 05/01/24 10:04) FLUSHING/RASH, hives Cephalosporins Allergy (Unknown, Verified 05/01/24 10:04) Unknown Medication List - Last Reconciled 05/01/24 by Naa Colón MD atorvastatin 20 mg PO DAILY cholecalciferol (vitamin D3) 50 mcg PO BEDTIME colesevelam 3.75 grams PO BID fluoxetine 10 mg PO DAILY losartan 25 mg PO DAILY nortriptyline 10 mg PO BEDTIME pantoprazole 40 mg PO DAILY Tobacco use date assessed: 05/01/24 Fall risk assessment: No Falls in past year Last assessed Fall Risk: 05/01/24 Dental Screening Dental Screen Date: 05/01/24 Did you have a dental visit in the last 12 months?: Yes Did you have a dental problem in the last 6 months where you did not have access to dental care?: No Was dental information given to patient?: Patient has dentist HPI 6mth follow up HTN 03/20 HPI Details Patient presents for the follow-up on hypertension hyperlipidemia chronic GERD stable on current medications. [facility] Medical History Liver masses Diverticulitis Abdominal pain Bacteriuria HTN (hypertension) Abnormal mammogram of right breast Vitamin D deficiency IBS (irritable bowel syndrome) Depression GERD (gastroesophageal reflux disease) Hypercholesterolemia Surgical History History of esophagogastroduodenoscopy (EGD) H/O colonoscopy History of hysterectomy with bilateral oophorectomy Hx laparoscopic cholecystectomy Family History Father Smoker Emphysema, unspecified Mother Colon cancer Maternal Grandfather No problems noted. Maternal Grandmother No problems noted. Paternal Grandfather No problems noted. Paternal Grandmother No problems noted. Sister Mental health disorder Sister Mental health disorder Sister Mental health disorder Social History Household Members: Spouse Housing: House Alcohol intake: current Alcohol intake frequency: a few times a week Patient Tobacco Use Status: Never used Tobacco e-Cigarette/Vaping Use: Never Used service: No Current occupational status: retired Cognitive needs: No Hearing needs: No Vision needs: Yes Questionnaire PHQ-9 Over the last 2 weeks, how often have you been bothered by any of the following problems? 1. Little interest or pleasure in doing things: not at all 2. Feeling down, depressed, or hopeless: not at all 3. Trouble falling or staying asleep, or sleeping too much: not at all 4. Feeling tired or having little energy: not at all 5. Poor appetite or overeating: not at all 6. Feeling bad about yourself - or that you are a failure or have let yourself or your family down: not at all 7. Trouble concentrating on things, such as reading the newspaper or watching television: not at all 8. Moving or speaking so slowly that other people could have noticed. Or the opposite - being so fidgety or restless that you have been moving around a lot more than usual: not at all 9. Thoughts that you would be better off or of hurting yourself in some way: not at all Total score: 0 Depression Screening Interpretation: Negative Depression Screening Done: Yes Source: Developed by Drs. Malcom Urrutia, Michelle Harrington, Johnathan Casiano and colleagues, with an educational carmen from [employer]. Thrive Questionnaire Date Thrive assessed: 05/01/24 I am a: Patient What is your living situation today?: I have a steady place to live Within the past 12 months, did the food you bought not last and you didn't have the money to get more?: Never true Within the past 12 months, did you worry whether your food would run out before you got money to buy more?: Never true Do you have trouble paying for medicines?: No Do you have trouble getting transportation to medical appointments?: No Do you have trouble paying your heating and electricity bill?: No Do you have trouble taking care of your child, family member or friend?: No Do you have trouble with day-to-day activities such as bathing, preparing meals, shopping, managing finances, etc.?: No Are you currently unemployed and looking for a job?: No Are you interested in more education?: No Please select the resources that you would like help with: Housing/Usp Currently or been in a relationship where the following occur: No concerns reported THRIVE Score: 0 AUDIT C Alcohol Use Questionnaire (AUDIT-C) 1. How often do you have a drink containing alcohol?: 2-3 times a week 2. How many drinks containing alcohol do you have on a typical day when you are drinking?: 1 or 2 3. How often do you have six or more drinks on one occasion?: Never Total Score: 3 SAMARA-7 AMB Questionnaire SAMARA-7 Date SAMARA - 7 assessed: 05/01/24 Feeling nervous, anxious, or on edge: 0 = Not at all Not being able to stop or control worryin = Not at all Worrying too much about different things: 0 = Not at all Trouble relaxin = Not at all Being so restless that it is hard to sit still: 0 = Not at all Becoming easily annoyed or irritable: 0 = Not at all Feeling afraid as if something awful might happen: 0 = Not at all Total SAMARA-7 score (0-4 normal; 5-9 mild; 10-14 moderate; 15-21 severe): 0 Source: Developed by Drs. Malcom Urrutia, Michelle Harrington, Johnathan Casiano and colleagues, with an educational carmen from [employer]. SAMARA-7 Assessment Billing SAMARA-7 Assessment Tool: SAMARA-7 Assessment 63180 Review of Systems Const All systems reviewed & are unremarkable except as noted in HPI and below ENT Reports no additional complaints Card Reports no additional complaints Resp Reports no additional complaints GI Reports no additional complaints Reports no additional complaints Physical exam (Primary Care) Vital Signs: Last Vital Signs Pulse 77 05/01/24 10:04 BP 126/82 05/01/24 10:04 Pulse Ox 97 05/01/24 10:04 Oxygen Delivery Method Room Air 05/01/24 10:04 BMI result Body Mass Index 23.1 Tobacco/Smoking Status: Tobacco use Status Tobacco use date assessed 05/01/24 05/01/24 10:05 Patient Tobacco Use Status Never used Tobacco 05/01/24 10:05 e-Cigarette/Vaping Use Never Used 05/01/24 10:05 PHQ-9: PHQ-9 Score PHQ-9: Total score 0 05/01/24 10:16 Depression Screening Interpretation: Negative Thrive Assessment: Date of Thrive Assessment Date Thrive assessed 05/01/24 05/01/24 10:16 Currently or been in a relationship where the following occur: No concerns reported Const General: no acute distress HENMT Head: Yes normal to inspection Mouth: Normal oral and palatal mucosa present Neck Neck: Yes supple Resp Effort & Inspection: normal respiratory effort Auscultation: clear to auscultation bilaterally Cardio Rhythm: regular rhythm Heart sounds: S1 normal heart sound present and S2 normal heart sound present Assessment and Plan Assessment & Plan (1) HTN (hypertension): Code(s): I10 - Essential (primary) hypertension Plan: Continue losartan (2) Hypercholesterolemia: Code(s): E78.00 - Pure hypercholesterolemia, unspecified Plan: Continue statin (3) Vitamin D deficiency: Code(s): E55.9 - Vitamin D deficiency, unspecified Plan: Continue vitamin-D, return for a physical with a fasting labs before Coding Level of Care Code Est Pt Level 4 (77234) Diagnoses HTN (hypertension) I10 Hypercholesterolemia E78.00 Vitamin D deficiency E55.9 Additional Codes SAMARA-7 Assessment Billing - SAMARA-7 Assessment Tool: SAMARA-7 Assessment 33628 ([id number])
== END 2024-05-01 10:53 | disposition home or self-care (01) ==
PROVIDERS: PCP Internal Medicine; Visit Provider Internal Medicine
DX: I10 Essential (primary) hypertension (principal); E78.00 Pure hypercholesterolemia, unspecified; E55.9 Vitamin D deficiency, unspecified
CPT/HCPCS: 99214

== ENCOUNTER 2024-05-01 10:54 | Outpatient (REF) | payer MEDICARE, SELFPAY ==
[2024-05-01 13:16] LABS: MANUAL DIFF FLAG NO
[2024-05-01 13:33] LABS: Basophils Absolute Auto 0.1 X10*3/uL (0.0-0.2); Basophils Percent Auto 1.1 % (0-2); Eosinophils Absolute Auto 0.1 X10*3/uL (0.0-0.4); Eosinophils Percent Auto 1.8 % (0-4); Hematocrit 42.5 % (37.0-47.0); Hemoglobin 13.8 g/dl (12.0-16.0); Imm Gran Abs Auto 0.02 X10*3/uL (0.00-0.03); Imm Gran Pct Auto 0.4 % (0.0-0.4); Lymphocytes Absolute Auto 2.1 X10*3/uL (1.2-4.9); Lymphocytes Percent Auto 37.3 % (20-40); Mean Corpuscular HGB Conc 32.5 g/dl (31.0-35.0); Mean Corpuscular Hemoglobin 30.6 pg (27.0-33.0); Mean Corpuscular Volume 94.2 fL (80.0-98.0); Mean Platelet Volume 8.9 fL (9.4-12.3); Monocytes Absolute Auto 0.3 X10*3/uL (0.1-1.2); Neutrophils Absolute Auto 3.1 x10*3/uL (2.0-8.3); Neutrophils Percent Auto 53.4 % (45-73); Platelet Count 321 X10*3/uL (160-400); Red Blood Count 4.51 X10*6/uL (4.20-5.50); Red Cell Distribution Width 12.8 % (11.0-16.0); White Blood Count 5.7 X10*3/uL (4.8-10.8)
[2024-05-01 13:55] LABS: Alanine Aminotransferase 20 U/L (0-31); Albumin Level 4.3 g/dL (3.5-5.0); Alkaline Phosphatase 77 U/L (39-117); Anion Gap 10 (12-20); Aspartate Amino Transferase 25 U/L (5-31); Bilirubin Total 0.5 mg/dL (0.0-1.0); Blood Urea Nitrogen 10 mg/dL (9-16); Calcium 9.6 mg/dL (8.4-10.2); Carbon Dioxide 28 mmol/L (22-29); Chloride 106 mmol/L (96-108); Cholesterol 180 mg/dL (<200); Estimated Glomerular Filt Rate > 60; Glucose Fasting 94 mg/dL (60-99); HDL Cholesterol 65 mg/dL (>40); LDL Cholesterol Calculated 98 mg/dL (<100); Potassium 3.9 mmol/L (3.3-5.1); Sodium 140 mmol/L (135-145); Total Protein 6.7 g/dL (6.5-8.0); Triglycerides 89 mg/dL (<150)
[2024-05-01 14:11] LABS: TSH reflex Free T4 0.64 uIU/mL (0.32-4.0)
== END 2024-05-01 10:55 | disposition home or self-care (01) ==
LOC: HO.HMGCLDS 10:54
PROVIDERS: PCP Internal Medicine; Visit Provider Internal Medicine
DX: Z00.00 Encounter for general adult medical examination without abnormal findings (principal); E78.00 Pure hypercholesterolemia, unspecified; I10 Essential (primary) hypertension; Z78.0 Asymptomatic menopausal state; E55.9 Vitamin D deficiency, unspecified
CPT/HCPCS: 36415; 80053; 80061; 82306; 84443; 85025

== ENCOUNTER 2024-11-12 09:23 | Outpatient (REF) | payer MEDICARE, SELFPAY ==
[2024-11-12 11:06] LABS: MANUAL DIFF FLAG NO
[2024-11-12 11:15] LABS: Basophils Absolute Auto 0.1 X10*3/uL (0.0-0.2); Eosinophils Absolute Auto 0.1 X10*3/uL (0.0-0.4); Eosinophils Percent Auto 2.7 % (0-4); Hematocrit 43.4 % (37.0-47.0); Hemoglobin 14.3 g/dl (12.0-16.0); Imm Gran Abs Auto 0.02 X10*3/uL (0.00-0.03); Imm Gran Pct Auto 0.4 % (0.0-0.4); Lymphocytes Absolute Auto 1.9 X10*3/uL (1.2-4.9); Lymphocytes Percent Auto 36.2 % (20-40); Mean Corpuscular HGB Conc 32.9 g/dl (31.0-35.0); Mean Corpuscular Volume 94.1 fL (80.0-98.0); Mean Platelet Volume 9.2 fL (9.4-12.3); Monocytes Absolute Auto 0.3 X10*3/uL (0.1-1.2); Monocytes Percent Auto 5.5 % (2-11); Neutrophils Absolute Auto 2.9 x10*3/uL (2.0-8.3); Neutrophils Percent Auto 54.2 % (45-73); Platelet Count 265 X10*3/uL (160-400); Red Blood Count 4.61 X10*6/uL (4.20-5.50); Red Cell Distribution Width 13.2 % (11.0-16.0); White Blood Count 5.3 X10*3/uL (4.8-10.8)
[2024-11-12 11:39] LABS: Alanine Aminotransferase 32 U/L (0-31); Albumin Level 4.3 g/dL (3.5-5.0); Alkaline Phosphatase 68 U/L (39-117); Anion Gap 9 (12-20); Aspartate Amino Transferase 30 U/L (5-31); Blood Urea Nitrogen 10 mg/dL (9-16); Calcium 9.1 mg/dL (8.4-10.2); Carbon Dioxide 28 mmol/L (22-29); Chloride 109 mmol/L (96-108); Cholesterol 189 mg/dL (<200); Estimated Glomerular Filt Rate > 60; Glucose Fasting 99 mg/dL (60-99); HDL Cholesterol 67 mg/dL (>40); LDL Cholesterol Calculated 101 mg/dL (<100); Potassium 4.2 mmol/L (3.3-5.1); Sodium 142 mmol/L (135-145); Total Protein 6.7 g/dL (6.5-8.0); Triglycerides 105 mg/dL (<150)
== END 2024-11-12 09:24 | disposition home or self-care (01) ==
LOC: HO.WFDLDS 09:23
PROVIDERS: Visit Provider Internal Medicine
DX: E87.6 Hypokalemia (principal); I10 Essential (primary) hypertension; E78.00 Pure hypercholesterolemia, unspecified
CPT/HCPCS: 36415; 80053; 80061; 85025

== ENCOUNTER 2024-11-14 10:05 | Outpatient (AMB) | payer MEDICARE, SELFPAY ==
[2024-11-14 10:06] VITALS: BP 128/80; PULSE 90; RESP 18; TEMP 37; O2SAT 98; BMI 24.3
--- NOTE | 2024-11-14 10:06 | A.OFFPC_ITS ---
Vital Signs 11/14/24 10:06 Height 5 ft 5 in Weight 146 lb BMI 24.3 BP 128/80 Blood Pressure Location Rt brachial Position Sitting Respiration 18 Pulse 90 Pulse Source Pulse Oximeter Temp 98.6 F Temp Source Oral Pulse Oximetry (%) 98 Oxygen Delivery Method Room Air Intake Visit Reasons: annual exam Intake Note: Pt is here today for PE. Allergies Penicillins [PENICILLINS] Allergy (Intermediate, Verified 11/14/24 10:38) HIVES Sulfa (Sulfonamide Antibiotics) [SULFA (SULFONAMIDE ANTIBIOTICS)] Allergy (Intermediate, Verified 11/14/24 10:38) FLUSHING/RASH, hives Cephalosporins Allergy (Unknown, Verified 11/14/24 10:38) Unknown Medication List - Last Reconciled 11/14/24 by Naa Colón MD atorvastatin 20 mg PO DAILY colesevelam 3.75 grams PO BID fluoxetine 10 mg PO DAILY losartan 25 mg PO DAILY nortriptyline 10 mg PO BEDTIME pantoprazole 40 mg PO DAILY Tobacco use date assessed: 11/14/24 Fall risk assessment: No Falls in past year Last assessed Fall Risk: 11/14/24 Dental Screening Dental Screen Date: 11/14/24 Did you have a dental visit in the last 12 months?: Yes Did you have a dental problem in the last 6 months where you did not have access to dental care?: No Was dental information given to patient?: Patient has dentist HPI annual exam HPI Details Pt presents for PE. [facility] Medical History Liver masses Diverticulitis Abdominal pain Bacteriuria HTN (hypertension) Abnormal mammogram of right breast Vitamin D deficiency IBS (irritable bowel syndrome) Depression GERD (gastroesophageal reflux disease) Hypercholesterolemia Surgical History History of esophagogastroduodenoscopy (EGD) H/O colonoscopy History of hysterectomy with bilateral oophorectomy Hx laparoscopic cholecystectomy Family History Father Smoker Emphysema, unspecified Mother Colon cancer Maternal Grandfather No problems noted. Maternal Grandmother No problems noted. Paternal Grandfather No problems noted. Paternal Grandmother No problems noted. Sister Mental health disorder Sister Mental health disorder Sister Mental health disorder Social History Household Members: Spouse Housing: House Alcohol intake: current Alcohol intake frequency: a few times a week Patient Tobacco Use Status: Never used Tobacco e-Cigarette/Vaping Use: Never Used service: No Current occupational status: retired Cognitive needs: No Hearing needs: No Vision needs: Yes Questionnaire PHQ-9 Over the last 2 weeks, how often have you been bothered by any of the following problems? 1. Little interest or pleasure in doing things: not at all 2. Feeling down, depressed, or hopeless: not at all 3. Trouble falling or staying asleep, or sleeping too much: not at all 4. Feeling tired or having little energy: not at all 5. Poor appetite or overeating: not at all 6. Feeling bad about yourself - or that you are a failure or have let yourself or your family down: not at all 7. Trouble concentrating on things, such as reading the newspaper or watching television: not at all 8. Moving or speaking so slowly that other people could have noticed. Or the opposite - being so fidgety or restless that you have been moving around a lot more than usual: not at all 9. Thoughts that you would be better off or of hurting yourself in some way: not at all Total score: 0 Depression Screening Interpretation: Negative Depression Screening Done: Yes 26936 - PHQ-9 Billing: Yes Source: Developed by Drs. Malcom Urrutia, Michelle Harrington, Johnathan Casiano and colleagues, with an educational carmen from [employer]. Thrive Questionnaire Date Thrive assessed: 05/01/24 I am a: Patient What is your living situation today?: I have a steady place to live Within the past 12 months, did the food you bought not last and you didn't have the money to get more?: Never true Within the past 12 months, did you worry whether your food would run out before you got money to buy more?: Never true Do you have trouble paying for medicines?: No Do you have trouble getting transportation to medical appointments?: No Do you have trouble paying your heating and electricity bill?: No Do you have trouble taking care of your child, family member or friend?: No Do you have trouble with day-to-day activities such as bathing, preparing meals, shopping, managing finances, etc.?: No Are you currently unemployed and looking for a job?: No Are you interested in more education?: No Please select the resources that you would like help with: None Currently or been in a relationship where the following occur: No concerns reported THRIVE Score: 0 AUDIT C Alcohol Use Questionnaire (AUDIT-C) 1. How often do you have a drink containing alcohol?: 2-3 times a week 2. How many drinks containing alcohol do you have on a typical day when you are drinking?: 1 or 2 3. How often do you have six or more drinks on one occasion?: Never Total Score: 3 SAMARA-7 AMB Questionnaire SAMARA-7 Date SAMARA - 7 assessed: 05/01/24 Feeling nervous, anxious, or on edge: 0 = Not at all Not being able to stop or control worryin = Not at all Worrying too much about different things: 0 = Not at all Trouble relaxin = Not at all Being so restless that it is hard to sit still: 0 = Not at all Becoming easily annoyed or irritable: 0 = Not at all Feeling afraid as if something awful might happen: 0 = Not at all Total SAMARA-7 score (0-4 normal; 5-9 mild; 10-14 moderate; 15-21 severe): 0 Source: Developed by Drs. Malcom Urrutia, Michelle Harrington, Johnathan Casiano and colleagues, with an educational carmen from [employer]. Review of Systems Const All systems reviewed & are unremarkable except as noted in HPI and below Reports no additional complaints Eyes Reports no additional complaints ENT Reports no additional complaints Card Reports no additional complaints Resp Reports no additional complaints GI Reports no additional complaints Reports no additional complaints Physical exam (Primary Care) Vital Signs: Last Vital Signs Temp 98.6 F 11/14/24 10:06 Pulse 90 11/14/24 10:06 Resp 18 11/14/24 10:06 BP 128/80 11/14/24 10:06 Pulse Ox 98 11/14/24 10:06 Oxygen Delivery Method Room Air 11/14/24 10:06 BMI result Body Mass Index 24.3 Tobacco/Smoking Status: Tobacco use Status Tobacco use date assessed 11/14/24 11/14/24 10:42 Patient Tobacco Use Status Never used Tobacco 11/14/24 10:06 e-Cigarette/Vaping Use Never Used 11/14/24 10:06 PHQ-9: PHQ-9 Score PHQ-9: Total score 0 11/14/24 10:06 Depression Screening Interpretation: Negative Thrive Assessment: Date of Thrive Assessment Date Thrive assessed 05/01/24 11/14/24 10:06 Currently or been in a relationship where the following occur: No concerns reported Const General: no acute distress HENMT Head: Yes normal to inspection Ears: hearing grossly normal bilaterally General nose exam: Normal external nose present Face and sinus: Yes normal facial exam Mouth: Normal oral and palatal mucosa present Throat: Yes posterior oropharynx normal Eyes General: appearance normal, both eyes and all related structures Neck Neck: Yes no lymphadenopathy and Yes supple Resp Effort & Inspection: normal respiratory effort Auscultation: clear to auscultation bilaterally Cardio Rhythm: regular rhythm Heart sounds: S1 normal heart sound present and S2 normal heart sound present GI Inspection: Yes normal to inspection Palpation (GI): Soft to palpation Percussion: Yes normal to percussion Auscultation: normal bowel sounds Coding Level of Care Code Est Pt Prev Care >65y(29231) Diagnoses Annual physical exam Z00.00 Vitamin D deficiency E55.9 HTN (hypertension) I10 Osteopenia M85.80 Additional Codes PHQ-9 - 21546 - PHQ-9 Billing: Yes ([id number]) Assessment & Plan Assessment & Plan (1) Annual physical exam: Comment: DEXA 01/2024 T score -2.1 fem neck, [facility] Code(s): Z00.00 - Encounter for general adult medical examination without abnormal findings Category: Medical Plan: Well-balanced diet regular physical activity discussed with the patient. She is up-to-date with the mammogram. Patient is due for repeat colonoscopy in September this year and will follow-up with GI to schedule it. (2) Vitamin D deficiency: Code(s): E55.9 - Vitamin D deficiency, unspecified Category: Medical Plan: Continue vitamin-D supplement (3) HTN (hypertension): Code(s): I10 - Essential (primary) hypertension Category: Medical Plan: Continue current medication (4) Osteopenia: Comment: DEXA [facility] 01/2024 T-score -2.1 fem neck Code(s): M85.80 - Other specified disorders of bone density and structure, unspecified site Category: Medical Plan: weight-bearing exercises discussed with the patient Orders: Orders Comprehensive [place]. Panel Fast 1 Year E55.9 - Vitamin D deficiency, unspecified, I10 - Essential (primary) hypertension, Z00.00 - Encounter for general adult medical examination without abnormal findings Complete Blood Count Auto Diff 1 Year E55.9 - Vitamin D deficiency, unspecified, I10 - Essential (primary) hypertension, Z00.00 - Encounter for general adult medical examination without abnormal findings Lipid Panel 1 Year E55.9 - Vitamin D deficiency, unspecified, I10 - Essential (primary) hypertension, Z00.00 - Encounter for general adult medical examination without abnormal findings Vitamin D 25-OH Total 1 Year E55.9 - Vitamin D deficiency, unspecified, I10 - Essential (primary) hypertension, Z00.00 - Encounter for general adult medical examination without abnormal findings Medications: Refilled atorvastatin 20 mg PO DAILY 90 tabs 3RF losartan 25 mg PO DAILY 90 tabs 3RF nortriptyline 10 mg PO BEDTIME 90 caps 3RF pantoprazole 40 mg PO DAILY 90 tabs 3RF colesevelam 3.75 grams PO BID 180 ea 3RF fluoxetine 10 mg PO DAILY 90 caps 3RF
== END 2024-11-14 11:16 | disposition home or self-care (01) ==
PROVIDERS: PCP Internal Medicine; Visit Provider Internal Medicine
DX: Z00.00 Encounter for general adult medical examination without abnormal findings (principal); E55.9 Vitamin D deficiency, unspecified; I10 Essential (primary) hypertension; M85.80 Other specified disorders of bone density and structure, unspecified site

== ENCOUNTER → 2024-11-14 10:05 | Outpatient (BNVA) | payer MEDICARE, SELFPAY | PROVIDERS: PCP Internal Medicine; Visit Provider Internal Medicine | DX: Z00.00 Encounter for general adult medical examination without abnormal findings (principal); E55.9 Vitamin D deficiency, unspecified; I10 Essential (primary) hypertension; M85.80 Other specified disorders of bone density and structure, unspecified site | CPT/HCPCS: 96127; 99397 ==

== ENCOUNTER 2025-03-21 10:23 | Outpatient (AMB) | payer MEDICARE, SELFPAY ==
--- NOTE | 2025-03-21 10:23 | AM.OFFWIN_ITS ---
Intake Vital Signs 03/21/25 10:27 Height 5 ft 5 in Weight 142 lb 6 oz BMI 23.7 BP 148/96 H Blood Pressure Location Lt brachial Position Sitting Pulse 90 Pulse Source Pulse Oximeter Temp 98.2 F Temp Source Oral Pulse Oximetry (%) 96 Oxygen Delivery Method Room Air Intake Visit Reasons: EP ?UTI Patient Tobacco Use Status: Never used Tobacco Client Onboarding Analyst Required: No Allergies Penicillins (PENICILLINS) Allergy (Intermediate, Verified 03/21/25 10:30) HIVES Sulfa (Sulfonamide Antibiotics) (SULFA (SULFONAMIDE ANTIBIOTICS)) Allergy (Intermediate, Verified 03/21/25 10:30) FLUSHING/RASH, hives Cephalosporins Allergy (Unknown, Verified 03/21/25 10:30) Unknown HPI EP ?UTI HPI Details This is a 74-year-old female patient who presents to the walk-in clinic with report of a 1 week history of UTI symptoms, including frequency and pressure. At-home UTI tests were positive. States that she has tried to increase fluid intake at home, hoping symptoms resolved, however they have not. Denies any fever/chills, or flank pain. States that symptoms are somewhat mild, however this historically has been how her UTIs feel at the beginning. [facility] Medical History Liver masses Diverticulitis Abdominal pain Bacteriuria HTN (hypertension) Abnormal mammogram of right breast Vitamin D deficiency IBS (irritable bowel syndrome) Depression GERD (gastroesophageal reflux disease) Hypercholesterolemia Surgical History History of esophagogastroduodenoscopy (EGD) H/O colonoscopy History of hysterectomy with bilateral oophorectomy Hx laparoscopic cholecystectomy Family History Father Smoker Emphysema, unspecified Mother Colon cancer Maternal Grandfather No problems noted. Maternal Grandmother No problems noted. Paternal Grandfather No problems noted. Paternal Grandmother No problems noted. Sister Mental health disorder Sister Mental health disorder Sister Mental health disorder Social History Household Members: Spouse Housing: House Alcohol intake: current Alcohol intake frequency: a few times a week Patient Tobacco Use Status: Never used Tobacco e-Cigarette/Vaping Use: Never Used service: No Current occupational status: retired Cognitive needs: No Hearing needs: No Vision needs: Yes Review of Systems Const All systems reviewed & are unremarkable except as noted in HPI and below Physical Exam Vital Signs: Last Vital Signs Temp 98.2 F 03/21/25 10:27 Pulse 90 03/21/25 10:27 BP 148/96 H 03/21/25 10:27 Pulse Ox 96 03/21/25 10:27 Oxygen Delivery Method Room Air 03/21/25 10:27 BMI result Body Mass Index 23.7 Const General: cooperative, healthy appearing and no acute distress Limitations: no limitations Resp Effort & Inspection: normal respiratory effort General: Yes bladder normal to palpation and Yes no CVA tenderness Bimanual exam- vagina & uterus: bladder normal to palpation Back/Spine/Pelvis Back: no CVA tenderness Skin General skin exam: no rashes or lesions noted Extrem General: Yes no clubbing, cyanosis or edema Psych Appearance: grossly normal Mental Status: mental status grossly normal Speech and movement: Normal speech and movement present Results AMB Urinalysis, Automated UA Leukoctes 0 [place]/uL Last Edit by Rosendo Kumar CMA on 03/21/25 10:43 UA Nitrite Negative Last Edit by Rosendo Kumar CMA on 03/21/25 10:43 UA Urobilinogen 0.2 mg/dL Last Edit by Rosendo Kumar CMA on 03/21/25 10 :43 UA Protein 0 mg/dL Last Edit by Rosendo Kumar CMA on 03/21/25 10:43 UA pH 6.0 Last Edit by Rosendo Kumar CMA on 03/21/25 10:43 UA Blood 0 [place]/uL Last Edit by Rosendo Kumar CMA on 03/21/25 10:43 UA Specific [place] 1.015 Last Edit by Rosendo Kumar CMA on 03/21/25 10:43 UA Ketone Negative Last Edit by Rosendo Kumar CMA on 03/21/25 10:43 UA Bilirubin 0 mg/dL Last Edit by Rosendo Kumar CMA on 03/21/25 10:43 UA Glucose 0 mg/dL Last Edit by Rosendo Kumar CMA on 03/21/25 10:43 Assessment & Plan Assessment & Plan (1) UTI (urinary tract infection): Code(s): N39.0 - Urinary tract infection, site not specified Qualifiers: Hematuria presence: without hematuria Urinary tract infection type: acute cystitis Qualified Code(s): N30.00 - Acute cystitis without hematuria Plan: Multiple antibiotic allergies. We will start her on Macrobid x5 days as well as phenazopyridine. We reviewed indications, use, possible side effects of medications. Advised she continue to maintain adequate hydration. May take Tylenol p.r.n.. She should return to the clinic if she does not improve with treatment. All questions were answered and patient verbalizes understanding and agrees to plan. Orders: Orders AMB Urinalysis Automated Today Z13.9 - Encounter for screening, unspecified Medications: New phenazopyridine 200 mg PO TID PRN 6 tabs 0RF pain 6 doses nitrofurantoin macrocrystal Take twice a day with food for 5 days. 100 mg PO BID 10 caps 0RF 5 days N39.0 - Urinary tract infection, site not specified Coding Level of Care Code Est Pt Level 4 (05154) Diagnoses Acute cystitis without hematuria N30.00 Hematuria presence: without hematuria Urinary tract infection type: acute cystitis
[2025-03-21 10:27] VITALS: BP 148/96; PULSE 90; TEMP 36.8; O2SAT 96; BMI 23.7
== END 2025-03-21 10:58 | disposition home or self-care (01) ==
PROVIDERS: PCP Internal Medicine; Visit Provider Nurse Practitioner Family
DX: N30.00 Acute cystitis without hematuria (principal); Z13.9 Encounter for screening, unspecified

== ENCOUNTER → 2025-03-21 10:23 | Outpatient (BNVA) | payer MEDICARE, SELFPAY | PROVIDERS: PCP Internal Medicine; Visit Provider Nurse Practitioner Family | DX: N30.00 Acute cystitis without hematuria (principal) | CPT/HCPCS: 81003; 99212 ==

== ENCOUNTER → 2025-04-10 10:56 | Outpatient (BNVA) | payer MEDICARE, SELFPAY | PROVIDERS: PCP Internal Medicine | DX: I10 Essential (primary) hypertension (principal); Z79.899 Other long term (current) drug therapy; Z13.39 Encounter for screening examination for other mental health and behavioral disorders; Z01.30 Encounter for examination of blood pressure without abnormal findings | CPT/HCPCS: 96127; 99211; 99212 ==

== ENCOUNTER 2025-04-10 11:54 | Outpatient (AMB) | payer MEDICARE, SELFPAY ==
--- NOTE | 2025-04-10 12:03 | A.OFFPC_ITS ---
Vital Signs 04/10/25 12:05 Height 5 ft 5 in Weight 141 lb BMI 23.5 BP 162/90 H Blood Pressure Location Lt brachial Position Sitting Pulse 79 Pulse Source Pulse Oximeter Pulse Oximetry (%) 98 Oxygen Delivery Method Room Air Intake Visit Reasons: BP, headache Train Examiner Required: No Accompanied by: Self / Same As Patient Allergies Penicillins (PENICILLINS) Allergy (Intermediate, Verified 04/10/25 12:06) HIVES Sulfa (Sulfonamide Antibiotics) (SULFA (SULFONAMIDE ANTIBIOTICS)) Allergy (Intermediate, Verified 04/10/25 12:06) FLUSHING/RASH, hives Cephalosporins Allergy (Unknown, Verified 04/10/25 12:06) Unknown Medication List - Last Reconciled 04/10/25 by Naa Colón MD atorvastatin 20 mg PO DAILY colesevelam 3.75 grams PO BID fluoxetine 10 mg PO DAILY losartan 50 mg (2 x 25 mg) PO DAILY nortriptyline 10 mg PO BEDTIME pantoprazole 40 mg PO DAILY Tobacco use date assessed: 11/14/24 Fall risk assessment: No Falls in past year Last assessed Fall Risk: 04/10/25 Dental Screening Dental Screen Date: 11/14/24 HPI BP, headache HPI Details Patient presents reporting increase blood pressure and headaches on and off for 1 month. She denies any change in her lifestyle increased stress insomnia dietary changes. She has been compliant with taking her medications regularly. Chronic depression anxiety are stable on current medications. [facility] Medical History Liver masses Diverticulitis Abdominal pain Bacteriuria HTN (hypertension) Abnormal mammogram of right breast Vitamin D deficiency IBS (irritable bowel syndrome) Depression GERD (gastroesophageal reflux disease) Hypercholesterolemia Surgical History History of esophagogastroduodenoscopy (EGD) H/O colonoscopy History of hysterectomy with bilateral oophorectomy Hx laparoscopic cholecystectomy Family History Father Smoker Emphysema, unspecified Mother Colon cancer Maternal Grandfather No problems noted. Maternal Grandmother No problems noted. Paternal Grandfather No problems noted. Paternal Grandmother No problems noted. Sister Mental health disorder Sister Mental health disorder Sister Mental health disorder Social History Household Members: Spouse Housing: House Alcohol intake: current Alcohol intake frequency: a few times a week Patient Tobacco Use Status: Never used Tobacco e-Cigarette/Vaping Use: Never Used service: No Current occupational status: retired Cognitive needs: No Hearing needs: No Vision needs: Yes Questionnaire Thrive Questionnaire Date Thrive assessed: 04/10/25 I am a: Patient What is your living situation today?: I have a steady place to live Within the past 12 months, did the food you bought not last and you didn't have the money to get more?: Never true Within the past 12 months, did you worry whether your food would run out before you got money to buy more?: Never true Do you have trouble paying for medicines?: No Do you have trouble getting transportation to medical appointments?: No Do you have trouble paying your heating and electricity bill?: No Do you have trouble taking care of your child, family member or friend?: No Do you have trouble with day-to-day activities such as bathing, preparing meals, shopping, managing finances, etc.?: No Are you currently unemployed and looking for a job?: No Are you interested in more education?: No Please select the resources that you would like help with: Housing/Correction Currently or been in a relationship where the following occur: No concerns reported THRIVE Score: 0 SAMARA-7 AMB Questionnaire SAMARA-7 Date SAMARA - 7 assessed: 04/10/25 Feeling nervous, anxious, or on edge: 0 = Not at all Not being able to stop or control worryin = Not at all Worrying too much about different things: 0 = Not at all Trouble relaxin = Not at all Being so restless that it is hard to sit still: 0 = Not at all Becoming easily annoyed or irritable: 0 = Not at all Feeling afraid as if something awful might happen: 0 = Not at all Total SAMARA-7 score (0-4 normal; 5-9 mild; 10-14 moderate; 15-21 severe): 0 Source: Developed by Drs. Malcom Urrutia, Michelle Harrington, Johnathan Casiano and colleagues, with an educational carmen from [employer]. SAMARA-7 Assessment Billing SAMARA-7 Assessment Tool: SAMARA-7 Assessment 21728 Review of Systems Const All systems reviewed & are unremarkable except as noted in HPI and below Eyes Reports no additional complaints ENT Reports no additional complaints Card Reports no additional complaints Resp Reports no additional complaints GI Reports no additional complaints Reports no additional complaints Physical exam (Primary Care) Vital Signs: Last Vital Signs Pulse 79 04/10/25 12:05 BP 162/90 H 04/10/25 12:05 Pulse Ox 98 04/10/25 12:05 Oxygen Delivery Method Room Air 04/10/25 12:05 BMI result Body Mass Index 23.5 Tobacco/Smoking Status: Tobacco use Status Tobacco use date assessed 11/14/24 04/10/25 12:04 Patient Tobacco Use Status Never used Tobacco 04/10/25 12:04 e-Cigarette/Vaping Use Never Used 04/10/25 12:04 Thrive Assessment: Date of Thrive Assessment Date Thrive assessed 04/10/25 04/10/25 12:09 Currently or been in a relationship where the following occur: No concerns reported Const General: no acute distress HENMT Mouth: Normal oral and palatal mucosa present Neck Neck: Yes no lymphadenopathy and Yes supple Resp Effort & Inspection: normal respiratory effort Auscultation: clear to auscultation bilaterally Cardio Rhythm: regular rhythm Heart sounds: S1 normal heart sound present and S2 normal heart sound present GI Inspection: Yes normal to inspection Palpation (GI): Soft to palpation Percussion: Yes normal to percussion Auscultation: normal bowel sounds Coding Level of Care Code Est Pt Level 3 (78024) Diagnoses HTN (hypertension) I10 Additional Codes SAMARA-7 Assessment Billing - SAMARA-7 Assessment Tool: SAMARA-7 Assessment 51992 ([id number]) Assessment & Plan Assessment & Plan (1) HTN (hypertension): Code(s): I10 - Essential (primary) hypertension Category: Medical Plan: Increase losartan to 50 mg a day, low-sodium diet regular physical activity stress management discussed with the patient. Follow-up in 1 week. Patient has a fasting labs a day before follow-up visit Orders: Orders Comprehensive Met. Panel 04/09/25 I10 - Essential (primary) hypertension Medications: Changed From losartan 25 mg PO DAILY 90 tabs 3RF To losartan 50 mg (2 x 25 mg) PO DAILY 90 tabs 3RF
[2025-04-10 12:05] VITALS: BP 162/90; PULSE 79; O2SAT 98; BMI 23.5
== END 2025-04-10 13:12 | disposition home or self-care (01) ==
LOC: HO.HMCC 11:56
PROVIDERS: PCP Internal Medicine; Visit Provider Internal Medicine
DX: I10 Essential (primary) hypertension (principal)

== ENCOUNTER 2025-04-16 08:36 | Outpatient (REF) | payer MEDICARE, SELFPAY ==
[2025-04-16 11:40] LABS: Alanine Aminotransferase 23 U/L (0-31); Albumin Level 4.6 g/dL (3.5-5.0); Alkaline Phosphatase 61 U/L (39-117); Anion Gap 12 (12-20); Aspartate Amino Transferase 28 U/L (5-31); Blood Urea Nitrogen 15 mg/dL (9-16); Calcium 9.3 mg/dL (8.4-10.2); Carbon Dioxide 26 mmol/L (22-29); Chloride 108 mmol/L (96-108); Estimated Glomerular Filt Rate > 60; Potassium 4.3 mmol/L (3.3-5.1); Sodium 142 mmol/L (135-145); Total Protein 6.8 g/dL (6.5-8.0)
== END 2025-04-16 08:37 | disposition home or self-care (01) ==
LOC: HO.WFDLDS 08:36
PROVIDERS: Visit Provider Internal Medicine
DX: I10 Essential (primary) hypertension (principal)
CPT/HCPCS: 36415; 80053

== ENCOUNTER 2025-04-17 09:53 | Outpatient (AMB) | payer MEDICARE, SELFPAY ==
[2025-04-17 10:07] VITALS: BP 124/96; PULSE 100; RESP 18; TEMP 36.8; O2SAT 97; BMI 23.3
--- NOTE | 2025-04-17 10:07 | A.OFFPC_ITS ---
Vital Signs 04/17/25 10:07 04/17/25 10:12 04/17/25 13:40 Height 5 ft 5 in Weight 140 lb BMI 23.3 BP 124/96 H 126/100 H 140/90 H Blood Pressure Location Lt brachial Rt brachial Rt brachial Position Sitting Sitting Sitting Respiration 18 Pulse 100 Pulse Source Pulse Oximeter Temp 98.2 F Temp Source Oral Pulse Oximetry (%) 97 Oxygen Delivery Method Room Air Intake Visit Reasons: 1 week follow up Intake Note: Pt is here today for 1 week follow up visit. Allergies Penicillins (PENICILLINS) Allergy (Intermediate, Verified 04/17/25 10:07) HIVES Sulfa (Sulfonamide Antibiotics) (SULFA (SULFONAMIDE ANTIBIOTICS)) Allergy (Intermediate, Verified 04/17/25 10:07) FLUSHING/RASH, hives Cephalosporins Allergy (Unknown, Verified 04/17/25 10:07) Unknown Tobacco use date assessed: 04/17/25 Dental Screening Dental Screen Date: 11/14/24 HPI 1 week follow up HPI Details Patient presents for the follow-up of hypertension. She has been taking 50 mg of losartan for the last week and checking her blood pressure at home. She has occasionally high readings up to 160/95. He reports intermittent headaches and has been under stress because of upcoming trip tomorrow. Patient denies chest pain shortness or breath. She complains of chronic insomnia and worsening of IBS symptoms with bloating. She has been taking nortriptyline for IBS for 3 years, [facility] Medical History Liver masses Diverticulitis Abdominal pain Bacteriuria HTN (hypertension) Abnormal mammogram of right breast Vitamin D deficiency IBS (irritable bowel syndrome) Depression GERD (gastroesophageal reflux disease) Hypercholesterolemia Surgical History History of esophagogastroduodenoscopy (EGD) H/O colonoscopy History of hysterectomy with bilateral oophorectomy Hx laparoscopic cholecystectomy Family History Father Smoker Emphysema, unspecified Mother Colon cancer Maternal Grandfather No problems noted. Maternal Grandmother No problems noted. Paternal Grandfather No problems noted. Paternal Grandmother No problems noted. Sister Mental health disorder Sister Mental health disorder Sister Mental health disorder Social History Household Members: Spouse Housing: House Alcohol intake: current Alcohol intake frequency: a few times a week Patient Tobacco Use Status: Never used Tobacco e-Cigarette/Vaping Use: Never Used service: No Current occupational status: retired Cognitive needs: No Hearing needs: No Vision needs: Yes Questionnaire Thrive Questionnaire Date Thrive assessed: 04/10/25 I am a: Patient What is your living situation today?: I have a steady place to live Within the past 12 months, did the food you bought not last and you didn't have the money to get more?: Never true Within the past 12 months, did you worry whether your food would run out before you got money to buy more?: Never true Do you have trouble paying for medicines?: No Do you have trouble getting transportation to medical appointments?: No Do you have trouble paying your heating and electricity bill?: No Do you have trouble taking care of your child, family member or friend?: No Do you have trouble with day-to-day activities such as bathing, preparing meals, shopping, managing finances, etc.?: No Are you currently unemployed and looking for a job?: No Are you interested in more education?: No Please select the resources that you would like help with: None Currently or been in a relationship where the following occur: No concerns reported THRIVE Score: 0 SAMARA-7 AMB Questionnaire SAMARA-7 Date SAMARA - 7 assessed: 04/10/25 Source: Developed by Drs. Malcom Urrutia, Michelle Harrington, Johnathan Casiano and colleagues, with an educational carmen from [employer]. Review of Systems Const All systems reviewed & are unremarkable except as noted in HPI and below Eyes Reports no additional complaints ENT Reports no additional complaints Card Reports no additional complaints Resp Reports no additional complaints GI Reports no additional complaints Reports no additional complaints Physical exam (Primary Care) Vital Signs: Last Vital Signs Temp 98.2 F 04/17/25 10:07 Pulse 100 04/17/25 10:07 Resp 18 04/17/25 10:07 BP 126/100 H 04/17/25 10:12 Pulse Ox 97 04/17/25 10:07 Oxygen Delivery Method Room Air 04/17/25 10:07 BMI result Body Mass Index 23.3 Tobacco/Smoking Status: Tobacco use Status Tobacco use date assessed 04/17/25 04/17/25 10:13 Patient Tobacco Use Status Never used Tobacco 04/17/25 10:13 e-Cigarette/Vaping Use Never Used 04/17/25 10:13 Thrive Assessment: Date of Thrive Assessment Date Thrive assessed 04/10/25 04/17/25 10:13 Currently or been in a relationship where the following occur: No concerns reported Const General: no acute distress HENNY General nose exam: Normal external nose present Eyes General: appearance normal, both eyes and all related structures Resp Effort & Inspection: normal respiratory effort Auscultation: clear to auscultation bilaterally Cardio Rhythm: regular rhythm Heart sounds: S1 normal heart sound present and S2 normal heart sound present GI Inspection: Yes normal to inspection Palpation (GI): Soft to palpation Percussion: Yes normal to percussion Auscultation: normal bowel sounds Coding Level of Care Code Est Pt Level 4 (45407) Diagnoses HTN (hypertension) I10 IBS (irritable bowel syndrome) K58.9 Assessment & Plan Assessment & Plan (1) HTN (hypertension): Code(s): I10 - Essential (primary) hypertension Category: Medical Plan: Continue 50 mg of losartan and add 5 mg of bisoprolol. Low-sodium diet stress management discussed with the patient. Follow-up in 10 days (2) IBS (irritable bowel syndrome): Comment: colonoscopy 09/2020 Code(s): K58.9 - Irritable bowel syndrome, unspecified Category: Medical Plan: Patient will increase nortriptyline to 20 mg q.h.s. well-balanced diet stress management discussed with the pt Medications: New bisoprolol fumarate 5 mg PO DAILY 90 tabs 0RF
[2025-04-17 10:12] VITALS: BP 126/100
[2025-04-17 13:40] VITALS: BP 140/90
== END 2025-04-17 13:43 | disposition home or self-care (01) ==
LOC: HO.HMCC 09:54
PROVIDERS: PCP Internal Medicine; Visit Provider Internal Medicine
DX: I10 Essential (primary) hypertension (principal); K58.9 Irritable bowel syndrome, unspecified

== ENCOUNTER → 2025-04-17 09:53 | Outpatient (BNVA) | payer MEDICARE, SELFPAY | PROVIDERS: PCP Internal Medicine; Visit Provider Internal Medicine | DX: I10 Essential (primary) hypertension (principal); K58.9 Irritable bowel syndrome, unspecified; Z79.899 Other long term (current) drug therapy | CPT/HCPCS: 99212 ==

== ENCOUNTER 2025-04-30 10:53 | Outpatient (AMB) | payer MEDICARE, SELFPAY ==
--- NOTE | 2025-04-30 11:29 | A.OFFPC_ITS ---
Vital Signs 04/30/25 11:30 Height 5 ft 5 in Weight 143 lb BMI 23.8 BP 108/74 Blood Pressure Location Lt brachial Position Sitting Respiration 18 Pulse 68 Pulse Source Pulse Oximeter Temp 98.1 F Temp Source Oral Pulse Oximetry (%) 97 Oxygen Delivery Method Room Air Intake Visit Reasons: 2 week follow up Intake Note: Pt is here today for 2 weeks follow up visit. Allergies Penicillins (PENICILLINS) Allergy (Intermediate, Verified 04/30/25 11:30) HIVES Sulfa (Sulfonamide Antibiotics) (SULFA (SULFONAMIDE ANTIBIOTICS)) Allergy (Intermediate, Verified 04/30/25 11:30) FLUSHING/RASH, hives Cephalosporins Allergy (Unknown, Verified 04/30/25 11:30) Unknown Medication List - Last Reconciled 04/30/25 by Naa Colón MD atorvastatin 20 mg PO DAILY bisoprolol fumarate 5 mg PO DAILY colesevelam 3.75 grams PO BID fluoxetine 10 mg PO DAILY losartan 50 mg (2 x 25 mg) PO DAILY losartan 50 mg PO DAILY nortriptyline 20 mg (2 x 10 mg) PO BEDTIME pantoprazole 40 mg PO DAILY Tobacco use date assessed: 04/30/25 Dental Screening Dental Screen Date: 11/14/24 HPI 2 week follow up HPI Details Patient presents for the follow-up on hypertension hyperlipidemia controlled on current medications REPLACED BY [facility] Medical History Liver masses Diverticulitis Abdominal pain Bacteriuria HTN (hypertension) Abnormal mammogram of right breast Vitamin D deficiency IBS (irritable bowel syndrome) Depression GERD (gastroesophageal reflux disease) Hypercholesterolemia Surgical History History of esophagogastroduodenoscopy (EGD) H/O colonoscopy History of hysterectomy with bilateral oophorectomy Hx laparoscopic cholecystectomy Family History Father Smoker Emphysema, unspecified Mother Colon cancer Maternal Grandfather No problems noted. Maternal Grandmother No problems noted. Paternal Grandfather No problems noted. Paternal Grandmother No problems noted. Sister Mental health disorder Sister Mental health disorder Sister Mental health disorder Social History Household Members: Spouse Housing: House Alcohol intake: current Alcohol intake frequency: a few times a week Patient Tobacco Use Status: Never used Tobacco e-Cigarette/Vaping Use: Never Used service: No Current occupational status: retired Cognitive needs: No Hearing needs: No Vision needs: Yes Questionnaire Thrive Questionnaire Date Thrive assessed: 11/07/24 I am a: Patient What is your living situation today?: I have a steady place to live Within the past 12 months, did the food you bought not last and you didn't have the money to get more?: Never true Within the past 12 months, did you worry whether your food would run out before you got money to buy more?: Never true Do you have trouble paying for medicines?: No Do you have trouble getting transportation to medical appointments?: No Do you have trouble paying your heating and electricity bill?: No Do you have trouble taking care of your child, family member or friend?: No Do you have trouble with day-to-day activities such as bathing, preparing meals, shopping, managing finances, etc.?: No Are you currently unemployed and looking for a job?: No Are you interested in more education?: No Please select the resources that you would like help with: None Currently or been in a relationship where the following occur: No concerns reported THRIVE Score: 0 SAMARA-7 AMB Questionnaire SAMARA-7 Date SAMARA - 7 assessed: 04/10/25 Source: Developed by Drs. Malcom Urrutia, iMchelle Harrington, Johnathan Casiano and colleagues, with an educational carmen from [employer]. Review of Systems Const All systems reviewed & are unremarkable except as noted in HPI and below Card Reports no additional complaints Resp Reports no additional complaints GI Reports no additional complaints Reports no additional complaints Physical exam (Primary Care) Vital Signs: Last Vital Signs Temp 98.1 F 04/30/25 11:30 Pulse 68 04/30/25 11:30 Resp 18 04/30/25 11:30 BP 108/74 04/30/25 11:30 Pulse Ox 97 04/30/25 11:30 Oxygen Delivery Method Room Air 04/30/25 11:30 BMI result Body Mass Index 23.8 Tobacco/Smoking Status: Tobacco use Status Tobacco use date assessed 04/30/25 04/30/25 11:35 Patient Tobacco Use Status Never used Tobacco 04/30/25 11:30 e-Cigarette/Vaping Use Never Used 04/30/25 11:30 Thrive Assessment: Date of Thrive Assessment Date Thrive assessed 11/07/24 04/30/25 11:30 Currently or been in a relationship where the following occur: No concerns reported Const General: no acute distress Eyes General: appearance normal, both eyes and all related structures Resp Effort & Inspection: normal respiratory effort Auscultation: clear to auscultation bilaterally Cardio Rhythm: regular rhythm Heart sounds: S1 normal heart sound present and S2 normal heart sound present Coding Level of Care Code Est Pt Level 4 (45878) Complex EM visit Add On G2211 Diagnoses HTN (hypertension) I10 Hypercholesterolemia E78.00 IBS (irritable bowel syndrome) K58.9 Assessment & Plan Assessment & Plan (1) HTN (hypertension): Code(s): I10 - Essential (primary) hypertension Category: Medical Plan: Continue losartan and bisoprolol follow-up in 2 months (2) Hypercholesterolemia: Code(s): E78.00 - Pure hypercholesterolemia, unspecified Category: Medical Plan: Continue atorvastatin (3) IBS (irritable bowel syndrome): Comment: colonoscopy 09/2020 Code(s): K58.9 - Irritable bowel syndrome, unspecified Category: Medical Plan: Continue increased dose of nortriptyline Medications: New losartan 50 mg PO DAILY 90 tabs 3RF Changed From nortriptyline 10 mg PO BEDTIME 90 caps 3RF To nortriptyline 20 mg (2 x 10 mg) PO BEDTIME 180 caps 3RF Refilled bisoprolol fumarate 5 mg PO DAILY 90 tabs 1RF
[2025-04-30 11:30] VITALS: BP 108/74; PULSE 68; RESP 18; TEMP 36.7; O2SAT 97; BMI 23.8
== END 2025-04-30 11:53 | disposition home or self-care (01) ==
LOC: HO.HMCC 10:53
PROVIDERS: PCP Internal Medicine; Visit Provider Internal Medicine
DX: I10 Essential (primary) hypertension (principal); E78.00 Pure hypercholesterolemia, unspecified; K58.9 Irritable bowel syndrome, unspecified

== ENCOUNTER → 2025-04-30 10:53 | Outpatient (BNVA) | payer MEDICARE, SELFPAY | PROVIDERS: PCP Internal Medicine; Visit Provider Internal Medicine | DX: I10 Essential (primary) hypertension (principal); E78.00 Pure hypercholesterolemia, unspecified; K58.9 Irritable bowel syndrome, unspecified; Z79.899 Other long term (current) drug therapy | CPT/HCPCS: 99212 ==

== ENCOUNTER 2025-07-02 10:54 | Outpatient (AMB) | payer MEDICARE, SELFPAY ==
--- NOTE | 2025-07-02 10:58 | A.OFFPC_ITS ---
Vital Signs 07/02/25 11:00 Height 5 ft 5 in Weight 142 lb BMI 23.6 BP 116/70 Blood Pressure Location Lt brachial Position Sitting Respiration 18 Pulse 67 Pulse Source Pulse Oximeter Temp 97.9 F Temp Source Oral Pulse Oximetry (%) 97 Oxygen Delivery Method Room Air Intake Visit Reasons: 2m follow up Intake Note: Pt is here today for 2 months follow up visit. Allergies Penicillins (PENICILLINS) Allergy (Intermediate, Verified 07/02/25 11:01) HIVES Sulfa (Sulfonamide Antibiotics) (SULFA (SULFONAMIDE ANTIBIOTICS)) Allergy (Intermediate, Verified 07/02/25 11:01) FLUSHING/RASH, hives Cephalosporins Allergy (Unknown, Verified 07/02/25 11:01) Unknown Medication List - Last Reconciled 07/02/25 by Naa Colón MD atorvastatin 20 mg PO DAILY bisoprolol fumarate 5 mg PO DAILY colesevelam 3.75 grams PO BID fluoxetine 10 mg PO DAILY losartan 50 mg PO DAILY nortriptyline 20 mg (2 x 10 mg) PO BEDTIME pantoprazole 40 mg PO DAILY Tobacco use date assessed: 07/02/25 Fall risk assessment: No Falls in past year Last assessed Fall Risk: 07/02/25 Dental Screening Dental Screen Date: 11/14/24 HPI 2m follow up HPI Details Patient presents for the follow-up on hypertension hyperlipidemia and chronic anxiety stable on current medications. Patient found imbedded tick on her skin 2 months ago developed rash surrounding the pt and was treated with 1 week of antibiotic by urgent care. She complains of left knee pain and stiffness for the last 2 weeks. Patient denies joint swelling erythema warmth [facility] Medical History Liver masses Diverticulitis Abdominal pain Bacteriuria HTN (hypertension) Abnormal mammogram of right breast Vitamin D deficiency IBS (irritable bowel syndrome) Depression GERD (gastroesophageal reflux disease) Hypercholesterolemia Surgical History History of esophagogastroduodenoscopy (EGD) H/O colonoscopy History of hysterectomy with bilateral oophorectomy Hx laparoscopic cholecystectomy Family History Father Smoker Emphysema, unspecified Mother Colon cancer Maternal Grandfather No problems noted. Maternal Grandmother No problems noted. Paternal Grandfather No problems noted. Paternal Grandmother No problems noted. Sister Mental health disorder Sister Mental health disorder Sister Mental health disorder Social History Household Members: Spouse Housing: House Alcohol intake: current Alcohol intake frequency: a few times a week Patient Tobacco Use Status: Never used Tobacco e-Cigarette/Vaping Use: Never Used service: No Current occupational status: retired Cognitive needs: No Hearing needs: No Vision needs: Yes Questionnaire PHQ-9 Over the last 2 weeks, how often have you been bothered by any of the following problems? 1. Little interest or pleasure in doing things: not at all 2. Feeling down, depressed, or hopeless: not at all 3. Trouble falling or staying asleep, or sleeping too much: not at all 4. Feeling tired or having little energy: not at all 5. Poor appetite or overeating: not at all 6. Feeling bad about yourself - or that you are a failure or have let yourself or your family down: not at all 7. Trouble concentrating on things, such as reading the newspaper or watching television: not at all 8. Moving or speaking so slowly that other people could have noticed. Or the opposite - being so fidgety or restless that you have been moving around a lot more than usual: not at all 9. Thoughts that you would be better off or of hurting yourself in some way: not at all Total score: 0 Depression Screening Interpretation: Negative Depression Screening Done: Yes Source: Developed by Drs. Malcom Urrutia, Michelle Harrington, Johnathan Casiano and colleagues, with an educational carmen from [employer]. Thrive Questionnaire Date Thrive assessed: 11/07/24 I am a: Patient What is your living situation today?: I have a steady place to live Within the past 12 months, did the food you bought not last and you didn't have the money to get more?: Never true Within the past 12 months, did you worry whether your food would run out before you got money to buy more?: Never true Do you have trouble paying for medicines?: No Do you have trouble getting transportation to medical appointments?: No Do you have trouble paying your heating and electricity bill?: No Do you have trouble taking care of your child, family member or friend?: No Do you have trouble with day-to-day activities such as bathing, preparing meals, shopping, managing finances, etc.?: No Are you currently unemployed and looking for a job?: No Are you interested in more education?: No Please select the resources that you would like help with: None Currently or been in a relationship where the following occur: No concerns reported THRIVE Score: 0 SAMARA-7 AMB Questionnaire SAMARA-7 Date SAMARA - 7 assessed: 04/10/25 Feeling nervous, anxious, or on edge: 0 = Not at all Not being able to stop or control worryin = Not at all Worrying too much about different things: 0 = Not at all Trouble relaxin = Not at all Being so restless that it is hard to sit still: 0 = Not at all Becoming easily annoyed or irritable: 0 = Not at all Feeling afraid as if something awful might happen: 0 = Not at all Total SAMARA-7 score (0-4 normal; 5-9 mild; 10-14 moderate; 15-21 severe): 0 Source: Developed by Drs. Malcom Urrutia, Michelle Harrington, Johnathan pearce nd colleagues, with an educational carmen from [employer]. Review of Systems Const All systems reviewed & are unremarkable except as noted in HPI and below ENT Reports no additional complaints Card Reports no additional complaints Resp Reports no additional complaints GI Reports no additional complaints Reports no additional complaints Physical exam (Primary Care) Vital Signs: Last Vital Signs Temp 97.9 F 07/02/25 11:00 Pulse 67 07/02/25 11:00 Resp 18 07/02/25 11:00 BP 116/70 07/02/25 11:00 Pulse Ox 97 07/02/25 11:00 Oxygen Delivery Method Room Air 07/02/25 11:00 BMI result Body Mass Index 23.6 Tobacco/Smoking Status: Tobacco use Status Tobacco use date assessed 07/02/25 07/02/25 11:04 Patient Tobacco Use Status Never used Tobacco 07/02/25 10:58 e-Cigarette/Vaping Use Never Used 07/02/25 10:58 PHQ-9: PHQ-9 Score PHQ-9: Total score 0 07/02/25 11:04 Depression Screening Interpretation: Negative Thrive Assessment: Date of Thrive Assessment Date Thrive assessed 11/07/24 07/02/25 10:58 Currently or been in a relationship where the following occur: No concerns reported Const General: no acute distress HENMT Head: Yes normal to inspection Face and sinus: Yes normal facial exam Eyes General: appearance normal, both eyes and all related structures Neck Neck: Yes supple Resp Effort & Inspection: normal respiratory effort Auscultation: clear to auscultation bilaterally Cardio Rhythm: regular rhythm Heart sounds: S1 normal heart sound present and S2 normal heart sound present GI Inspection: Yes normal to inspection Palpation (GI): Soft to palpation Extrem Other: This is a slightly decreased range of motion in the left knee no soft tissue swelling erythema warmth Coding Level of Care Code Est Pt Level 4 (75436) Diagnoses Tick bite W57.XXXA Left knee pain M25.562 HTN (hypertension) I10 Hypercholesterolemia E78.00 Assessment & Plan Assessment & Plan (1) Tick bite: Code(s): W57.XXXA - Bitten or stung by nonvenomous insect and other nonvenomous arthro pods, initial encounter Category: Medical Plan: Check Lyme titer (2) Left knee pain: Code(s): M25.562 - Pain in left knee Category: Medical Plan: Check x-ray of left knee and will refer for physical therapy if the pain persist (3) HTN (hypertension): Code(s): I10 - Essential (primary) hypertension Category: Medical Plan: Continue current medications (4) Hypercholesterolemia: Code(s): E78.00 - Pure hypercholesterolemia, unspecified Category: Medical Plan: Continue statin, patient will have physical in November with fasting labs before Orders: Orders Lyme IgG/IgM w/reflex to WB Today W57.XXXA - Bitten or stung by nonvenomous insect and other nonvenomous arthropods, initial encounter XR knee LT 2V Today W57.XXXA - Bitten or stung by nonvenomous insect and other nonvenomous arthropods, initial encounter Medications: Refilled bisoprolol fumarate 5 mg PO DAILY 90 tabs 3RF
[2025-07-02 11:00] VITALS: BP 116/70; PULSE 67; RESP 18; TEMP 36.6; O2SAT 97; BMI 23.6
== END 2025-07-02 11:38 | disposition home or self-care (01) ==
LOC: HO.HMCC 10:55
PROVIDERS: PCP Internal Medicine; Visit Provider Internal Medicine
DX: T63.481A Toxic effect of venom of other arthropod, accidental (unintentional), initial encounter (principal); M25.562 Pain in left knee; I10 Essential (primary) hypertension; E78.00 Pure hypercholesterolemia, unspecified

== ENCOUNTER 2025-07-02 10:54 | Outpatient (REF) | payer MEDICARE, SELFPAY ==
--- NOTE | ~2025-07-02 | XR_ITS ---
EXAMINATION: XR KNEE, LEFT CLINICAL INFORMATION: W57.XXXA - Bitten or stung by nonvenomous insect and other nonvenomous a... COMPARISON: None available. TECHNIQUE: AP and lateral views of the left knee. FINDINGS: There is no joint effusion. There is minimal narrowing of the medial joint space. There are marginal sites along the medial joint line and patella femoral joint. No bony erosions are identified. XR/XR knee LT 2V IMPRESSION: Mild osteoarthritis. Electronically signed by: Nnamdi Pinon MD 07/02/2025 12:05 PM EDT
[2025-07-03 06:28] LABS: Lyme Abs Screen <0.90 index
== END 2025-07-02 10:55 | disposition home or self-care (01) ==
LOC: HO.HMGCX 10:54
PROVIDERS: PCP Internal Medicine; Visit Provider Internal Medicine
DX: I10 Essential (primary) hypertension (principal); W57.XXXA Bitten or stung by nonvenomous insect and other nonvenomous arthropods, initial encounter; M25.562 Pain in left knee; E78.00 Pure hypercholesterolemia, unspecified
CPT/HCPCS: 36415; 73560; 86617; 86618; 99212

== ENCOUNTER → 2025-07-02 11:53 | Outpatient (BNV) | payer MEDICARE, SELFPAY | PROVIDERS: PCP Internal Medicine; Visit Provider Radiology Diagnostic Radiology | DX: M25.562 Pain in left knee (principal); W57.XXXA Bitten or stung by nonvenomous insect and other nonvenomous arthropods, initial encounter | CPT/HCPCS: 73560 ==